=== PATIENT | male | born 1940 | race Hispanic/Latino ===

== ENCOUNTER 2017-10-30 18:51 | Emergency (ER) | payer MEDICARE, MEDICAID | END 2017-10-30 19:43 | disposition home or self-care (01) | LOC: ERS 18:51 | DX: L71.9 Rosacea, unspecified (principal); R09.81 Nasal congestion; I10 Essential (primary) hypertension; E11.9 Type 2 diabetes mellitus without complications | CPT/HCPCS: 99283 ==

== ENCOUNTER 2018-01-23 14:22 | Emergency (ER) | payer MEDICARE, MEDICAID | END 2018-01-23 15:25 | disposition home or self-care (01) | LOC: ERS 14:22 | DX: B37.49 Other urogenital candidiasis (principal); E11.9 Type 2 diabetes mellitus without complications; I10 Essential (primary) hypertension | CPT/HCPCS: 99283 ==

== ENCOUNTER 2018-03-06 21:48 | Emergency (ER) | payer MEDICARE, MEDICAID | END 2018-03-06 23:26 | LOC: ERS 21:48 | DX: Z53.21 Procedure and treatment not carried out due to patient leaving prior to being seen by health care provider (principal) ==

== ENCOUNTER 2018-03-12 01:16 | Emergency (ER) | payer MEDICARE, MEDICAID ==
[2018-03-12] MEDS ORDERED: HYDROcodone/Acetaminophen 10/325 mg Tablet ONE (02:01)
--- NOTE | 2018-03-12 07:53 | RAD ---
PA AND LATERAL VIEWS CHEST: Date: 03/12/18 HISTORY: Injury, right-sided rib pain. FINDINGS/IMPRESSION: Comparison made with exam of 08/06/12. The heart size is normal. The aorta is tortuous. No lobar consolidation or pneumothoraces seen. A sma ll right lateral pleural effusion is present. There is a fracture involving the right 8th rib. POS: [facility]
== END 2018-03-12 02:06 | disposition home or self-care (01) ==
LOC: ERS 01:16
DX: S20.211A Contusion of right front wall of thorax, initial encounter (principal); S00.31XA Abrasion of nose, initial encounter; E11.9 Type 2 diabetes mellitus without complications; Z79.4 Long term (current) use of insulin; W01.0XXA Fall on same level from slipping, tripping and stumbling without subsequent striking against object, initial encounter
CPT/HCPCS: 71046

== ENCOUNTER 2018-04-22 19:02 | Emergency (ER) | payer MEDICARE, MEDICAID | END 2018-04-22 21:54 | disposition left against medical advice (07) | LOC: ERS 19:02 | DX: Z53.21 Procedure and treatment not carried out due to patient leaving prior to being seen by health care provider (principal) ==

== ENCOUNTER 2018-04-28 17:59 | Emergency (ER) | payer MEDICARE, MEDICAID | END 2018-04-28 18:57 | disposition home or self-care (01) | LOC: ERS 17:59 | DX: N48.1 Balanitis (principal); E11.9 Type 2 diabetes mellitus without complications; E78.5 Hyperlipidemia, unspecified; Z79.4 Long term (current) use of insulin; Z79.899 Other long term (current) drug therapy | CPT/HCPCS: 99283 ==

== ENCOUNTER 2018-05-27 14:42 | Emergency (ER) | payer MEDICARE, MEDICAID | END 2018-05-27 17:24 | disposition left against medical advice (07) | LOC: ERS 14:42 | DX: Z53.21 Procedure and treatment not carried out due to patient leaving prior to being seen by health care provider (principal) ==

== ENCOUNTER 2018-06-08 18:33 | Emergency (ER) | payer MEDICARE, MEDICAID ==
[2018-06-08 19:23] LABS: Bilirubin Negative (Negative); Blood, Urine Negative (Negative); Clarity CLEAR (Clear); Glucose, Urine (Dipstick) >=1000 mg/dL (Negative); Leukocyte Small (Negative); Nitrite Negative (Negative); Protein, Urine (Dipstick) Negative (Neg-Trace); Specific Gravity, Urine 1.031 (1.002-1.036)
[2018-06-08 19:27] LABS: Bacteria/HPF None Seen HPF (None Seen); Hyaline Casts/LPF 0-3 HYALINE CAST LPF (0-3 Hyaline); Squamous Epithelial 0-3 HPF (0-3); WBC/HPF 21-50 HPF (0-3)
[2018-06-08 19:30] LABS: Yeast-AUWi Flag 62.5 (0-25.0)
[2018-06-08 19:41] LABS: RBC/HPF 0-3 HPF (0-3); Yeast-All Forms Rare HPF (None Seen)
[2018-06-08] MEDS ORDERED: cefTRIAXone\\ROCEPHIN 250 MG VIAL ONE (21:00)
[2018-06-08] MEDS ORDERED: Lidocaine 1% PF 5 ML VIAL ONE (21:02)
[2018-06-08] MEDS ORDERED: Azithromycin 250 MG TAB ONE (21:05)
== END 2018-06-08 21:15 | disposition home or self-care (01) ==
LOC: ERS 18:33
DX: N48.1 Balanitis (principal); N47.1 Phimosis; E11.9 Type 2 diabetes mellitus without complications; E78.5 Hyperlipidemia, unspecified
CPT/HCPCS: 81003; 81015; 87070; 87086; 87186; 87205; 96372; J0696; J2001

== ENCOUNTER 2018-07-12 16:21 | Emergency (ER) | payer MEDICARE, MEDICAID ==
[2018-07-12 17:25] LABS: Bilirubin Negative (Negative); Blood, Urine Negative (Negative); Clarity CLEAR (Clear); Glucose, Urine (Dipstick) >=1000 mg/dL (Negative); Leukocyte Negative (Negative); Nitrite Negative (Negative); Protein, Urine (Dipstick) Negative (Neg-Trace); Specific Gravity, Urine 1.034 (1.002-1.036); Urobilinogen 0.2 mg/dL (0.2-1.0); pH, Urine 5.5 (5.0-9.0)
== END 2018-07-12 18:02 | disposition left against medical advice (07) ==
LOC: ERS 16:21
DX: Z53.21 Procedure and treatment not carried out due to patient leaving prior to being seen by health care provider (principal)
CPT/HCPCS: 81003

== ENCOUNTER 2018-08-05 16:45 | Outpatient (CLI) | payer MEDICARE, MEDICAID ==
--- NOTE | 2018-08-05 18:59 | RAD ---
KUB: 08/05/18 HISTORY: Renal calculus. COMPARISON: CT of the abdomen was performed 09/19/15. Most recent exam available for comparison. Bowel gas pattern is nonobstructive. There is some faint calcifications that are potentially over the lower pole of th e right kidney and some similar questionable densities over the lower pole of the left kidney. I do n ot see any definite ureteral calculi. There are calcifications of the pelvis which are felt to most l ikely represent phleboliths. Vascular calcifications are seen. Arthritic changes of the spine are not ed. Postop cholecystectomy changes are present. IMPRESSION: Questionable bilateral punctate lower pole renal calculi. POS: [facility]
== END 2018-08-05 16:46 | disposition home or self-care (01) ==
LOC: RAD 16:45
PROVIDERS: ATTEND Urology
DX: N20.0 Calculus of kidney (principal)
CPT/HCPCS: 74018

== ENCOUNTER 2018-10-09 08:56 | Emergency (ER) | payer MEDICAID, MEDICARE ==
[2018-10-09 09:28] LABS: Bilirubin Negative (Negative); Blood, Urine Trace (Negative); Clarity CLOUDY (Clear); Glucose, Urine (Dipstick) 500 mg/dL (Negative); Leukocyte Large (Negative); Nitrite Negative (Negative); Protein, Urine (Dipstick) Negative (Neg-Trace); Specific Gravity, Urine 1.015 (1.002-1.036); Urobilinogen 0.2 mg/dL (0.2-1.0)
[2018-10-09 09:31] LABS: Bacteria/HPF Rare-Few HPF (None Seen); Pathc Cast-AUWi Flag 0.72 (0-2.49); Squamous Epithelial 0-3 HPF (0-3)
[2018-10-09 09:33] LABS: Yeast-AUWi Flag 284.2 (0-25.0)
[2018-10-09 09:33] LABS: #Basophils 0.1 thou/uL (0.0-0.2); #Eosinphils 0.2 thou/uL (0.0-0.7); #Monocytes 0.5 thou/uL (0.11-0.59); #Neutrophils 3.1 thou/uL (1.40-6.50); %Basophils 1.3 % (0.0-1.0); %Eosinophils 4.2 % (0.0-10.0); %Lymphocytes 20.9 % (21.0-51.0); %Monocytes 10.3 % (0.0-10.0); %Neutrophils 63.4 % (42.0-75.0); Hemoglobin 14.6 g/dL (14.0-18.0); Mean Corpuscular HGB CONC 33.9 g/dL (32.0-36.0); Mean Corpuscular Hemoglobin 30.1 pg (27.0-31.0); Mean Corpuscular Volume 88.8 fL (78.0-98.0); Mean Platelet Volume 7.9 fL (7.4-10.4); Platelet Count 201 thou/uL (130-400); RBC Distribution Width 12.6 % (11.5-14.5); Red Blood Cell (RBC) Count 4.87 mill/uL (4.70-6.10); White Blood Cell (WBC) Count 4.8 thou/uL (4.8-10.8)
[2018-10-09 09:40] LABS: Hyaline Casts/LPF NONE SEEN LPF (0-3 Hyaline); RBC/HPF 0-3 HPF (0-3); Yeast-All Forms 1+ HPF (None Seen)
[2018-10-09 09:52] LABS: ALT (SGPT) 9 U/L (8-55); AST (SGOT) 13 U/L (5-34); Albumin 3.8 g/dL (3.4-4.8); Alkaline Phosphatase 92 U/L (40-150); Anion Gap 10 mmol/L (10-20); BUN (Urea Nitrogen) 12 mg/dL (8.4-25.7); Bilirubin, Total 1.1 mg/dL (0.2-1.2); Calc. Creatinine Clearance 0 mL/min (70-130); Carbon Dioxide 30 mmol/L (23-31); Chloride 103 mmol/L (98-107); Estimated GFR-MDRD Greater than 90; Globulin 2.7 g/dL (2.4-3.5); Glucose 259 mg/dL (83-110); Potassium 3.5 mmol/L (3.5-5.1); Protein, Total 6.5 g/dL (5.8-8.1); Sodium 139 mmol/L (136-145)
== END 2018-10-09 10:07 | disposition home or self-care (01) ==
LOC: ERS 08:56
DX: E11.65 Type 2 diabetes mellitus with hyperglycemia (principal); N47.1 Phimosis; N48.1 Balanitis; I10 Essential (primary) hypertension; N39.0 Urinary tract infection, site not specified; E78.5 Hyperlipidemia, unspecified
CPT/HCPCS: 36415; 36416; 80053; 81003; 81015; 85025; 87086; 99283

== ENCOUNTER 2018-11-18 15:53 | Emergency (ER) | payer MEDICARE | END 2018-11-18 16:39 | disposition home or self-care (01) | LOC: ERS 15:53 | DX: S40.862A Insect bite (nonvenomous) of left upper arm, initial encounter (principal); S40.861A Insect bite (nonvenomous) of right upper arm, initial encounter; I10 Essential (primary) hypertension; E11.9 Type 2 diabetes mellitus without complications; E78.5 Hyperlipidemia, unspecified; F32.9 Major depressive disorder, single episode, unspecified; W57.XXXA Bitten or stung by nonvenomous insect and other nonvenomous arthropods, initial encounter | CPT/HCPCS: 99282 ==

== ENCOUNTER 2018-12-13 19:13 | Emergency (ER) | payer MEDICARE, MEDICAID | END 2018-12-13 20:29 | disposition home or self-care (01) | LOC: ERS 19:13 | DX: B86 Scabies (principal); I10 Essential (primary) hypertension; E11.9 Type 2 diabetes mellitus without complications; E78.5 Hyperlipidemia, unspecified; F32.9 Major depressive disorder, single episode, unspecified | CPT/HCPCS: 99282 ==

== ENCOUNTER 2019-01-04 08:39 | Emergency (ER) | payer MEDICARE, MEDICAID ==
[2019-01-04] MEDS ORDERED: Lidocaine 1% (PF) 30 ML VIAL ONE (09:25)
[2019-01-04 10:24] LABS: #Eosinphils 0.1 thou/uL (0.0-0.7); #Lymphocytes 0.8 thou/uL (1.20-3.40); #Monocytes 0.6 thou/uL (0.11-0.59); #Neutrophils 5.2 thou/uL (1.40-6.50); %Basophils 0.4 % (0.0-1.0); %Eosinophils 1.6 % (0.0-10.0); %Lymphocytes 11.7 % (21.0-51.0); %Neutrophils 77.2 % (42.0-75.0); Hemoglobin 13.4 g/dL (14.0-18.0); Mean Corpuscular Hemoglobin 27.2 pg (27.0-31.0); Mean Corpuscular Volume 87.8 fL (78.0-98.0); Mean Platelet Volume 7.5 fL (7.4-10.4); Platelet Count 233 thou/uL (130-400); RBC Distribution Width 12.1 % (11.5-14.5); Red Blood Cell (RBC) Count 4.94 mill/uL (4.70-6.10); White Blood Cell (WBC) Count 6.8 thou/uL (4.8-10.8)
[2019-01-04 10:37] LABS: ALT (SGPT) 13 U/L (8-55); AST (SGOT) 11 U/L (5-34); Albumin 3.6 g/dL (3.4-4.8); Alkaline Phosphatase 96 U/L (40-150); Anion Gap 11 mmol/L (10-20); BUN (Urea Nitrogen) 14 mg/dL (8.4-25.7); Bilirubin, Total 0.7 mg/dL (0.2-1.2); Calc. Creatinine Clearance 0 mL/min (70-130); Carbon Dioxide 28 mmol/L (23-31); Chloride 100 mmol/L (98-107); Estimated GFR-MDRD Greater than 90; Globulin 2.5 g/dL (2.4-3.5); Glucose 365 mg/dL (83-110); Potassium 3.8 mmol/L (3.5-5.1); Protein, Total 6.1 g/dL (5.8-8.1); Sodium 135 mmol/L (136-145)
[2019-01-04] MEDS ORDERED: HYDROcodone/Acetaminophen 10/325 mg Tablet ONE (10:37)
== END 2019-01-04 11:15 | disposition home or self-care (01) ==
LOC: ERS 08:39
DX: L02.811 Cutaneous abscess of head [any part, except face] (principal); E11.65 Type 2 diabetes mellitus with hyperglycemia; I10 Essential (primary) hypertension; E78.5 Hyperlipidemia, unspecified; F32.9 Major depressive disorder, single episode, unspecified; Z79.899 Other long term (current) drug therapy
CPT/HCPCS: 10060; 36415; 36416; 80053; 85025; J2001

== ENCOUNTER 2019-01-09 13:20 | Emergency (ER) | payer MEDICARE, MEDICAID ==
[2019-01-09] MEDS ORDERED: HYDROcodone/Acetaminophen 5/325 mg Tablet ONE (14:37)
== END 2019-01-09 14:45 | disposition home or self-care (01) ==
LOC: ERS 13:20
DX: L02.811 Cutaneous abscess of head [any part, except face] (principal)
CPT/HCPCS: 10060

== ENCOUNTER 2019-01-10 20:26 | Emergency (ER) | payer MEDICARE, MEDICAID ==
[2019-01-10] MEDS ORDERED: Acetaminophen 500 MG TAB ONE (21:41)
== END 2019-01-10 21:52 | disposition home or self-care (01) ==
LOC: ERS 20:26
DX: N49.2 Inflammatory disorders of scrotum (principal); E11.9 Type 2 diabetes mellitus without complications; Z79.899 Other long term (current) drug therapy
CPT/HCPCS: 99283

== ENCOUNTER 2019-01-13 10:10 | Inpatient (IN) | payer MEDICARE, MEDICAID ==
[2019-01-13 12:10] LABS: #Basophils 0.1 thou/uL (0.0-0.2); #Eosinphils 0.1 thou/uL (0.0-0.7); #Lymphocytes 1.1 thou/uL (1.20-3.40); #Monocytes 0.7 thou/uL (0.11-0.59); #Neutrophils 5.7 thou/uL (1.40-6.50); %Basophils 0.8 % (0.0-1.0); %Eosinophils 1.2 % (0.0-10.0); %Lymphocytes 14.3 % (21.0-51.0); %Monocytes 8.9 % (0.0-10.0); %Neutrophils 74.7 % (42.0-75.0); Hemoglobin 14.4 g/dL (14.0-18.0); Mean Corpuscular HGB CONC 32.2 g/dL (32.0-36.0); Mean Corpuscular Hemoglobin 28.9 pg (27.0-31.0); Mean Platelet Volume 7.1 fL (7.4-10.4); Platelet Count 267 thou/uL (130-400); RBC Distribution Width 12.2 % (11.5-14.5); Red Blood Cell (RBC) Count 4.99 mill/uL (4.70-6.10); White Blood Cell (WBC) Count 7.7 thou/uL (4.8-10.8)
[2019-01-13] MEDS ORDERED: Lidocaine 4% Cream 5 GM TUBE w/ Tegaderm ONE (12:25)
[2019-01-13 12:35] LABS: ALT (SGPT) 12 U/L (8-55); AST (SGOT) 15 U/L (5-34); Albumin 4.2 g/dL (3.4-4.8); Alkaline Phosphatase 107 U/L (40-150); Anion Gap 13 mmol/L (10-20); BUN (Urea Nitrogen) 8 mg/dL (8.4-25.7); Bilirubin, Total 0.7 mg/dL (0.2-1.2); Calc. Creatinine Clearance 0 mL/min (70-130); Calcium 9.6 mg/dL (7.8-10.44); Carbon Dioxide 31 mmol/L (23-31); Chloride 98 mmol/L (98-107); Estimated GFR-MDRD Greater than 90; Globulin 2.9 g/dL (2.4-3.5); Glucose 233 mg/dL (83-110); Potassium 3.8 mmol/L (3.5-5.1); Protein, Total 7.1 g/dL (5.8-8.1); Sodium 138 mmol/L (136-145)
[2019-01-13] MEDS ORDERED: Lidocaine 1% w/Epinephrine 1:100K 20 ML VIAL ONE (13:30)
[2019-01-13] MEDS ORDERED: Morphine 4 MG/ML VIAL ONE (13:54)
[2019-01-13] MEDS ORDERED: Piperacillin/Tazobactam 4.5 GM VIAL ONE (13:55)
[2019-01-13] MEDS ORDERED: Sodium Chloride 0.9% 100 ML ONE (13:55)
[2019-01-13] MEDS ORDERED: Ondansetron PF 4 MG/2 ML Vial ONE (13:55)
[2019-01-13] MEDS ORDERED: Ondansetron ODT 4 MG TAB PO PRN (14:37)
[2019-01-13] MEDS ORDERED: Dextrose 5% in Water 1,000 ML IV PRN (14:37)
[2019-01-13] MEDS ORDERED: HumaLOG 300 UNITS/3 ML VIAL SC PRN (14:37)
[2019-01-13] MEDS ORDERED: Dextrose 50% Abboject 50 ML SYRINGE SLOW IVP PRN (14:37)
[2019-01-13] MEDS ORDERED: Acetaminophen 325 MG TAB PO PRN (14:37)
[2019-01-13] MEDS ORDERED: Ondansetron PF 4 MG/2 ML Vial IVP PRN (14:37)
--- NOTE | 2019-01-13 14:37 | PDOC.FPRHP ---
- History of Present Illness Chief Complaint: Head abscess, cellulitis History of Present Illness: This is a 78 yo male with a pmh of HTN, DM2, and staph colonization who presents to the ED for the third time for a cc of abscess on the back of his head. He states it started as a small bump but has grown and become painful. The ER PA reports she has drained this abscess twice now and he has had 3 days of bactrim and keflex but is not improving. Pt denies fever or chills. He state he has rats and bugs at home which he contributes to his head and a scratch on his arm. He states nothing makes it better and palpation makes it worse. 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 denies: vomiting, diarrhea, constipation Genitourinary: denies: incontinence, dysuria Skin: reports: other (See HPI) Musculoskeletal: denies: pain, tenderness, stiffness Neurological: denies: numbness, syncope Psychological: denies: anxiety, depression - Vital signs BP: 138/81 HR: 86 RR: 15 Tmax: 97.7 Pox: 98% on ra Wt: 77 kg - Physical Exam Constitutional: NAD, awake, alert and oriented, well developed HEENT: grossly normal vision, grossly normal hearing, MMM, other (golf ball sized abscess on posterior head with mild erythematous spread) Heart: RRR, normal S1/S2 Lungs: CTAB, no respiratory distress Abdomen: soft, non-tender, bowel sounds present Musculoskeletal: ROM grossly normal Neurological: no focal deficit Skin: no rash/lesions (Abscess on back of head) Heme/Lymphatic: no unusual bruising or bleeding Psychiatric: normal mood and affect FMR H&P: Results - Labs Result Diagrams: 01/14/19 05:05 01/13/19 12:01 Lab results: WBC 7.7 thou/uL (4.8-10.8) 01/13/19 12:01 Hgb 14.4 g/dL (14.0-18.0) 01/13/19 12:01 Hct 44.9 % (42.0-52.0) 01/13/19 12:01 MCV 90.0 fL (78.0-98.0) 01/13/19 12:01 Plt Count 267 thou/uL (130-400) 01/13/19 12:01 Neutrophils % 74.7 % (42.0-75.0) 01/13/19 12:01 ESR Westergren 23 mm/hr (Less than 20) 01/13/19 12:01 Sodium 138 mmol/L (136-145) 01/13/19 12:01 Potassium 3.8 mmol/L (3.5-5.1) 01/13/19 12:01 Chloride 98 mmol/L (98-107) 01/13/19 12:01 Carbon Dioxide 31 mmol/L (23-31) 01/13/19 12:01 BUN 8 mg/dL (8.4-25.7) L 01/13/19 12:01 Creatinine 0.80 mg/dL (0.7-1.3) 01/13/19 12:01 Glucose 233 mg/dL (83-110) H 01/13/19 12:01 Lactic Acid 1.4 mmol/L (0.5-2.2) 01/13/19 13:27 Calcium 9.6 mg/dL (7.8-10.44) 01/13/19 12:01 Total Bilirubin 0.7 mg/dL (0.2-1.2) 01/13/19 12:01 AST 15 U/L (5-34) 01/13/19 12:01 ALT 12 U/L (8-55) 01/13/19 12:01 Alkaline Phosphatase 107 U/L (40-150) 01/13/19 12:01 C-Reactive Protein 1.00 mg/dL (= or < 0.5) H 01/13/19 12:01 Serum Total Protein 7.1 g/dL (5.8-8.1) 01/13/19 12:01 Albumin 4.2 g/dL (3.4-4.8) 01/13/19 12:01 FMR H&P: A/P - Problem List (1) Cellulitis and abscess of head Status: Acute Code(s): L03.811 - CELLULITIS OF HEAD [ANY PART, EXCEPT FACE]; L02.811 - CUTANEOUS ABSCESS OF HEAD [ANY PART, EXCEPT FACE] (2) HTN (hypertension) Status: Chronic Code(s): I10 - ESSENTIAL (PRIMARY) HYPERTENSION (3) DM2 (diabetes mellitus, type 2) Status: Chronic - Plan This is a 78 yo male with a pmh of HTN, DM2 Abscess on back of head -Admit to obs -I&D with packing performed at bedside with 5cc of exudate expressed -Vanc and clinda started -Tylenol and naproxen for pain -Reevaluate in AM -Nursing to bandage changes DM -Appears uncontrolled, pending A1c -SSI, ACHS glucose checks -Continue home meds HTN -Reports no longer taking meds. May consider low dose lisinopril for kidneys Code: Full Prophylaxis: SCDs Family: at bedside Diet: diabetic Disposition: DC in 1-2 days PCP: TOM Smith FMR H&P: Upper Level - Pertinent history 78 y/o M with DM and hx/o abscess presents for abscess and pain to ED. Has been on Keflex and Bactrin for ~1w and had I&D several times in ED within the past week, but not resolved. In ED, larger incision was made and packing placed. Purulent material drained from area. - Pertinent findings 5x5 cm abscess noted on R occiput. - Plan Date/Time: 01/13/19 1434 IVivek, have evaluated this patient and agree with findings/plan as outlined by global marketing intern resident. Pertinent changes/additions are listed here. # Recurrent Abcess- Failed outpatient treatment and recurrence. Will place on IV Van along with Po Clindamycin overnight after I&D performed in ED. Pain control. # DM2- Continue home medication regimen DISPO: anticipate discharge in 1 day Addendum - Attending - Attending Attestation Date/Time: 01/13/191940 I personally evaluated the patient and discussed the management with Dr. Chilel and Dr. Contreras I agree with the History, Examination, Assessment and Plan documented above with any addition or exceptions noted below. 78 yo male with failed outpatient treatment for abscess. Now s/p I&D in ER. Continue empiric antibx. Trend labs. No s/sx of systemic involvement at present. Cultures pending. Switch to oral antibx based on culture results. Monica
[2019-01-13 15:51] VITALS: BMI 25.6
[2019-01-13] MEDS: Clindamycin 150 MG CAP PO SCH ×2 (16:52→21:15)
[2019-01-13] MEDS: Acetaminophen 500 MG TAB PO SCH (17:56)
[2019-01-13] MEDS: HumaLOG 300 UNITS/3 ML VIAL SC PRN (17:57)
[2019-01-13] MEDS: Glimepiride 4 MG TAB PO SCH (21:15)
[2019-01-13] MEDS: Naproxen 500 MG TAB PO SCH (21:15)
[2019-01-14] MEDS: Acetaminophen 500 MG TAB PO SCH ×4 (00:24→18:00)
[2019-01-14] MEDS: Vancomycin HCl 1 GM in Premix Bag 1 BAG IVPB SCH ×2 (00:25→13:31)
[2019-01-14] MEDS ORDERED: Vancomycin HCl 1 GM in Sodium Chloride 0.9% 250 ML 250 ML IVPB SCH (01:00)
[2019-01-14 05:43] LABS: #Basophils 0.1 thou/uL (0.0-0.2); #Eosinphils 0.2 thou/uL (0.0-0.7); #Lymphocytes 1.2 thou/uL (1.20-3.40); #Monocytes 0.7 thou/uL (0.11-0.59); #Neutrophils 3.9 thou/uL (1.40-6.50); %Basophils 1.2 % (0.0-1.0); %Eosinophils 3.2 % (0.0-10.0); %Lymphocytes 19.1 % (21.0-51.0); %Monocytes 11.6 % (0.0-10.0); %Neutrophils 64.8 % (42.0-75.0); Hemoglobin 12.9 g/dL (14.0-18.0); Mean Corpuscular HGB CONC 32.8 g/dL (32.0-36.0); Mean Corpuscular Hemoglobin 29.5 pg (27.0-31.0); Mean Corpuscular Volume 90.1 fL (78.0-98.0); Mean Platelet Volume 7.3 fL (7.4-10.4); Platelet Count 228 thou/uL (130-400); RBC Distribution Width 12.2 % (11.5-14.5); Red Blood Cell (RBC) Count 4.36 mill/uL (4.70-6.10)
[2019-01-14 05:47] LABS: Hemoglobin A1c 11.6 % (4.0-6.0)
--- NOTE | 2019-01-14 06:03 | PDOC.FM ---
- Subjective Subjective: Pt state she did well overnight. Nursing denies any issues. This morning he states his pain is improved. He denies fever or chills. - Objective MAR Reviewed: Yes Vital Signs & Weight: Vital Signs (12 hours) Temp Pulse Resp BP Pulse Ox 01/14/19 03:56 98 F 69 16 137/77 97 01/13/19 23:21 97.2 F L 73 12 151/79 H 96 01/13/19 19:02 98.4 F 82 12 166/81 H 97 Weight Weight 76.385 kg I&O: 01/12/19 01/13/19 01/14/19 06:59 06:59 06:59 Intake Total 600 Balance 600 Result Diagrams: 01/14/19 05:05 01/13/19 12:01 Phys Exam - Physical Examination Constitutional: NAD HEENT: moist MMs Neck: no JVD, full ROM Respiratory: no wheezing, clear to auscultation bilateral Cardiovascular: RRR, no significant murmur Gastrointestinal: soft, non-tender, no distention, positive bowel sounds Musculoskeletal: no edema, pulses present Neurological: moves all 4 limbs Psychiatric: normal affect, A&O x 3 Skin: cap refill <2 seconds Deviation from normal: Abscess and enduration on the back of head is improved -: Changed dressing this AM, small amount of exudate expressed Dx/Plan (1) Cellulitis and abscess of head Code(s): L03.811 - CELLULITIS OF HEAD [ANY PART, EXCEPT FACE]; L02.811 - CUTANEOUS ABSCESS OF HEAD [ANY PART, EXCEPT FACE] Status: Acute (2) HTN (hypertension) Code(s): I10 - ESSENTIAL (PRIMARY) HYPERTENSION Status: Acute (3) DM2 (diabetes mellitus, type 2) Status: Acute - Plan Plan: This is a 78 yo male with a pmh of HTN, DM2 Abscess on back of head -Admit to obs -I&D with packing performed at bedside with 5cc of exudate expressed -Vanc and clinda started -Tylenol and naproxen for pain -Will observe today, appears to be improving in pain and erythema -Nursing to bandage changes DM -Appears uncontrolled, A1c 11.6 -SSI, ACHS glucose checks -Continue home meds HTN -Reports no longer taking meds. May consider low dose lisinopril for kidneys Addendum - Attending - Attending Attestation Date/Time: 01/14/19 5465 I personally evaluated the patient and discussed the management with Dr. Chilel. I agree with the History, Examination, Assessment and Plan documented above with any addition or exceptions noted below. Patient here for cellulitis and abscess refractory to outpatient antibiotic therapy. He continues on Clinda and Vanc. Wound cx pending. Reports improvement in symptoms. Continue abx and await cx results. Will work to get blood sugars better controlled while here.
[2019-01-14] MEDS ORDERED: traMADol HCl 50 MG TAB PO SCH (07:00)
[2019-01-14] MEDS ORDERED: Insulin Glargine 17 UNITS in Pre-Filled Syringe 1 EACH SC SCH (09:00)
[2019-01-14] MEDS ORDERED: Non-Formulary Item 1 EACH (Insulin Glargine,Hum.Rec.Anlog [Lantus Solostar] 15 UNIT) SC SCH (09:00)
[2019-01-14] MEDS ORDERED: Insulin Glargine 15 UNITS in Pre-Filled Syringe 1 EACH SC SCH (09:00)
[2019-01-14] MEDS: Naproxen 500 MG TAB PO SCH ×2 (09:50→21:03)
[2019-01-14] MEDS: Clindamycin 150 MG CAP PO SCH ×4 (09:51→21:03)
[2019-01-14] MEDS: Glimepiride 4 MG TAB PO SCH ×2 (09:51→21:03)
[2019-01-14] MEDS: HumaLOG 300 UNITS/3 ML VIAL SC PRN ×2 (11:53→18:30)
[2019-01-15] MEDS: Acetaminophen 500 MG TAB PO SCH ×2 (00:17→05:37)
[2019-01-15] MEDS: Vancomycin HCl 1 GM in Premix Bag 1 BAG IVPB SCH (00:19)
[2019-01-15 00:48] LABS: Vancomycin, Trough 9.3 ug/mL
--- NOTE | 2019-01-15 05:16 | PDOC.FM ---
- Subjective Subjective: Patient reports the pain from his abscess is improving. He is eating and drinking well, voiding and stooling well, no other complaints. - Objective Vital Signs & Weight: Vital Signs (12 hours) Temp Pulse Resp BP Pulse Ox 01/15/19 03:43 97.4 F L 68 18 132/77 99 01/14/19 23:05 98.4 F 78 20 148/69 H 97 01/14/19 20:12 97.3 F L 73 20 164/84 H 98 Weight Weight 76.385 kg I&O: 01/13/19 01/14/19 01/15/19 06:59 06:59 06:59 Intake Total 1325 780 Balance 1325 780 Result Diagrams: 01/14/19 05:05 01/13/19 12:01 Phys Exam - Physical Examination Constitutional: NAD Respiratory: no wheezing, clear to auscultation bilateral Cardiovascular: RRR, no significant murmur Gastrointestinal: soft, non-tender, no distention, positive bowel sounds Musculoskeletal: no edema, pulses present Neurological: non-focal, moves all 4 limbs Psychiatric: normal affect Skin: normal turgor, cap refill <2 seconds Dx/Plan (1) Cellulitis and abscess of head Code(s): L03.811 - CELLULITIS OF HEAD [ANY PART, EXCEPT FACE]; L02.811 - CUTANEOUS ABSCESS OF HEAD [ANY PART, EXCEPT FACE] Status: Acute (2) DM2 (diabetes mellitus, type 2) Status: Chronic (3) HTN (hypertension) Code(s): I10 - ESSENTIAL (PRIMARY) HYPERTENSION Status: Chronic - Plan Plan: This is a 78 yo male with a pmh of HTN, DM2 Abscess on back of head -I&D with packing performed at bedside with 5cc of exudate expressed -Vanc and clinda, sensitivities resulted showed resistance to multiple meds, plan to de-escalate antibiotics -Tylenol and naproxen for pain -appears to be improving in pain and erythema -Nursing to bandage changes DM2, uncontrolled -Uncontrolled, A1c 11.6 -Increased glargine to 20 u QAM, continue glimepiride home dose -SSI, ACHS glucose checks HTN -Reports no longer taking meds. May consider low dose lisinopril for kidneys Addendum - Attending - Attending Attestation Date/Time: 01/15/19 1577 I personally evaluated the patient and discussed the management with Dr. Velasco. I agree with the History, Examination, Assessment and Plan documented above with any addition or exceptions noted below. Patient here with abscess and cellulitis s/p I/D. He reports improved pain. Sensitivities have resulted. Can likely transition to PO therapy and d/c home with outpatient follow up. DM improved control with Lantus increase but not at goal, will need titration as outpatient.
[2019-01-15] MEDS ORDERED: Insulin Glargine 20 UNITS in Pre-Filled Syringe 1 EACH SC SCH (05:33)
[2019-01-15 08:34] VITALS: BP 165/79; TEMP 98
[2019-01-15] MEDS: Glimepiride 4 MG TAB PO SCH (09:52)
[2019-01-15] MEDS: Naproxen 500 MG TAB PO SCH (09:52)
[2019-01-15] MEDS: Clindamycin 150 MG CAP PO SCH (09:52)
--- NOTE | 2019-01-17 11:48 | DIS ---
DATE OF ADMISSION: 01/14/2019 DATE OF DISCHARGE: 01/15/2019 RESIDENT: Sydnee Velasco MD ADMITTING ATTENDING: Cat Mejia MD DISCHARGE ATTENDING: Arvin Mott MD CONSULTS: None. PROCEDURES: None. PRIMARY DIAGNOSIS: Abscess on the posterior head due to methicillin resistant Staph aureus. SECONDARY DIAGNOSES: 1. Diabetes mellitus type 2, uncontrolled on insulin. 2. Hypertension. DISCHARGE MEDICATIONS: 1. Glimepiride 4 mg tablet, one tab p.o. b.i.d. 2. Doxycycline 100 mg p.o. b.i.d., 20 capsules. 3. Insulin glargine 20 units subcutaneous q.a.m. DISCONTINUED MEDICATIONS: None. HISTORY OF PRESENT ILLNESS/HOSPITAL COURSE: This 78-year-old male with a past medical history of hypertension, diabetes mellitus type 2 and staph colonization , presented to the ED for the third time for chief complaint of abscess on the back of his head. He states that it started as a small bump, but has grown and become painful. The ER physician's assistant professor of radiology reported that she has drained this abscess twice now and he has had 3 days of Bactrim and Keflex, but is not improving. The patient denies fever or chills. He stated he has rats and bugs at home which he contributes to his bump and scratch on his arm. He states nothing makes it better and palpation makes the pain worse. In the ED, he received Zofran, morphine, normal saline 1 L, Zosyn, and vancomycin. The patient was continued on vancomycin and clindamycin. The abscess was I and D'd with packing performed at bedside with 5 mL of exudate expressed. The fluid was sent for culture. It grew out methicillin resistant Staph aureus, sensitive to doxycycline. Blood cultures were drawn, which showed no growth to date. The patient was given Tylenol and naproxen for the pain. The patient improved in his pain and erythema. The patient is discharged with 10 more days of doxycycline and to perform Hibiclens washes daily for 2 weeks. The patient also had type 2 diabetes mellitus, uncontrolled with A1c of 11.6. He is on Glimepiride and glargine at home. His home glargine was increased from 15 units to 20 units qAM. The patient has a history of hypertension but reports he is no longer taking medications. His blood pressure ranged from 120/65 to 165/79. Consider starting lisinopril outpatient. DISPOSITION: Stable. DISCHARGE INSTRUCTIONS: 1. Location: Home. 2. Diet: Consisting carb, heart healthy. 3. Activity: As tolerated. 4. Followup: Follow up with Dr. Dudley at [facility] on Thursday. Job ID: [id number] MTDD
== END 2019-01-15 11:15 | disposition home or self-care (01) | DRG 603 ==
LOC: ERS 10:10 → ERHOLD 13:48 → 2SW 15:44 → OBSVTOIN 01-14 10:46
PROVIDERS: ADMIT Student in an Organized Health Care Education/Training Program; ATTEND Student in an Organized Health Care Education/Training Program
PROC: 0H90XZZ Drainage of Scalp Skin, External Approach (ICD-10-PCS; principal; 2019-01-14)
DX: L02.811 Cutaneous abscess of head [any part, except face] (principal); L03.811 Cellulitis of head [any part, except face]; I10 Essential (primary) hypertension; E11.65 Type 2 diabetes mellitus with hyperglycemia; B95.62 Methicillin resistant Staphylococcus aureus infection as the cause of diseases classified elsewhere; Z79.4 Long term (current) use of insulin
CPT/HCPCS: 36415; 36416; 80053; 80202; 83036; 83605; 85025; 85652; 86140; 87040; 87070; 87077; 87186; 87205; 96365; 96375; J1825; J2001; J2270; J2405; J2543; J3370; J3490

== ENCOUNTER 2019-01-21 07:30 | Emergency (ER) | payer MEDICARE, MEDICAID | END 2019-01-21 08:12 | disposition home or self-care (01) | LOC: ERS 07:30 | DX: S60.562A Insect bite (nonvenomous) of left hand, initial encounter (principal); W57.XXXA Bitten or stung by nonvenomous insect and other nonvenomous arthropods, initial encounter | CPT/HCPCS: 99282 ==

== ENCOUNTER 2019-01-23 13:36 | Emergency (ER) | payer MEDICARE, MEDICAID | END 2019-01-23 14:55 | disposition home or self-care (01) | LOC: ERS 13:36 | DX: N47.1 Phimosis (principal); S40.862A Insect bite (nonvenomous) of left upper arm, initial encounter; S40.861A Insect bite (nonvenomous) of right upper arm, initial encounter; E11.9 Type 2 diabetes mellitus without complications; Z79.84 Long term (current) use of oral hypoglycemic drugs; W57.XXXA Bitten or stung by nonvenomous insect and other nonvenomous arthropods, initial encounter | CPT/HCPCS: 99281 ==

== ENCOUNTER 2019-01-29 22:33 | Emergency (ER) | payer MEDICARE, MEDICAID | END 2019-01-29 23:17 | disposition home or self-care (01) | LOC: ERS 22:33 | DX: H60.92 Unspecified otitis externa, left ear (principal); N48.1 Balanitis; E11.9 Type 2 diabetes mellitus without complications | CPT/HCPCS: 99282 ==

== ENCOUNTER 2019-02-09 12:13 | Emergency (ER) | payer MEDICARE, MEDICAID | END 2019-02-09 12:50 | disposition home or self-care (01) | LOC: ERS 12:13 | DX: H92.02 Otalgia, left ear (principal); E11.9 Type 2 diabetes mellitus without complications; Z79.84 Long term (current) use of oral hypoglycemic drugs | CPT/HCPCS: 99281 ==

== ENCOUNTER 2019-02-18 12:44 | Emergency (ER) | payer MEDICARE, MEDICAID ==
--- NOTE | 2019-02-18 13:39 | RAD ---
EXAM: Chest 2 views: HISTORY: Cough COMPARISON: 03/12/2018 FINDINGS: There is a normal-sized cardiomediastinal silhouette. There is no evidence of consolidation, mass, or pleural effusion. A remote right rib fracture is again seen. IMPRESSION: No evidence of acute cardiopulmonary disease
[2019-02-18 14:04] LABS: #Eosinphils 0.1 thou/uL (0.0-0.7); #Lymphocytes 1.1 thou/uL (1.20-3.40); #Monocytes 0.7 thou/uL (0.11-0.59); #Neutrophils 4.1 thou/uL (1.40-6.50); %Basophils 0.6 % (0.0-1.0); %Eosinophils 1.6 % (0.0-10.0); %Lymphocytes 17.9 % (21.0-51.0); %Monocytes 11.9 % (0.0-10.0); Hemoglobin 14.7 g/dL (14.0-18.0); Mean Corpuscular HGB CONC 32.8 g/dL (32.0-36.0); Mean Corpuscular Hemoglobin 29.6 pg (27.0-31.0); Mean Corpuscular Volume 90.2 fL (78.0-98.0); Mean Platelet Volume 7.7 fL (7.4-10.4); Platelet Count 189 thou/uL (130-400); RBC Distribution Width 12.8 % (11.5-14.5); Red Blood Cell (RBC) Count 4.97 mill/uL (4.70-6.10); White Blood Cell (WBC) Count 6.1 thou/uL (4.8-10.8)
[2019-02-18 14:30] LABS: ALT (SGPT) 13 U/L (8-55); AST (SGOT) 15 U/L (5-34); Alkaline Phosphatase 107 U/L (40-150); Anion Gap 11 mmol/L (10-20); BUN (Urea Nitrogen) 24 mg/dL (8.4-25.7); Bilirubin, Total 0.4 mg/dL (0.2-1.2); Calc. Creatinine Clearance 0 mL/min (70-130); Calcium 9.6 mg/dL (7.8-10.44); Carbon Dioxide 31 mmol/L (23-31); Chloride 97 mmol/L (98-107); Estimated GFR-MDRD 88; Globulin 2.8 g/dL (2.4-3.5); Glucose 385 mg/dL (83-110); Potassium 4.3 mmol/L (3.5-5.1); Protein, Total 6.8 g/dL (5.8-8.1); Sodium 135 mmol/L (136-145)
== END 2019-02-18 16:03 | disposition home or self-care (01) ==
LOC: ERS 12:44
DX: H60.91 Unspecified otitis externa, right ear (principal); E78.5 Hyperlipidemia, unspecified; E11.9 Type 2 diabetes mellitus without complications; I10 Essential (primary) hypertension; Z79.899 Other long term (current) drug therapy
CPT/HCPCS: 36415; 71046; 80053; 85025

== ENCOUNTER 2019-02-27 20:46 | Emergency (ER) | payer MEDICARE, MEDICAID | END 2019-02-27 21:13 | disposition home or self-care (01) | LOC: ERS 20:46 | DX: H60.92 Unspecified otitis externa, left ear (principal); E78.00 Pure hypercholesterolemia, unspecified; I10 Essential (primary) hypertension; E11.9 Type 2 diabetes mellitus without complications | CPT/HCPCS: 99282 ==

== ENCOUNTER 2019-03-11 19:13 | Emergency (ER) | payer MEDICARE, MEDICAID | END 2019-03-11 22:49 | disposition left against medical advice (07) | LOC: ERS 19:13 | DX: Z53.21 Procedure and treatment not carried out due to patient leaving prior to being seen by health care provider (principal) ==

== ENCOUNTER 2019-03-12 21:20 | Emergency (ER) | payer MEDICARE, MEDICAID | END 2019-03-12 21:53 | disposition home or self-care (01) | LOC: ERS 21:20 | DX: N47.6 Balanoposthitis (principal); N47.1 Phimosis | CPT/HCPCS: 99281 ==

== ENCOUNTER 2019-03-20 18:45 | Emergency (ER) | payer MEDICARE, MEDICAID | END 2019-03-20 20:20 | disposition home or self-care (01) | LOC: ERS 18:45 | DX: B37.42 Candidal balanitis (principal); N47.1 Phimosis; L02.811 Cutaneous abscess of head [any part, except face]; H66.42 Suppurative otitis media, unspecified, left ear; E11.9 Type 2 diabetes mellitus without complications; I10 Essential (primary) hypertension; E78.00 Pure hypercholesterolemia, unspecified | CPT/HCPCS: 10060 ==

== ENCOUNTER 2019-05-25 15:49 | Emergency (ER) | payer MEDICARE, MEDICAID | END 2019-05-25 16:30 | disposition home or self-care (01) | LOC: ERS 15:49 | DX: L21.9 Seborrheic dermatitis, unspecified (principal); K45.8 Other specified abdominal hernia without obstruction or gangrene; E11.9 Type 2 diabetes mellitus without complications; I10 Essential (primary) hypertension; E78.00 Pure hypercholesterolemia, unspecified | CPT/HCPCS: 99281 ==

== ENCOUNTER 2019-06-21 17:11 | Emergency (ER) | payer MEDICARE, MEDICAID | END 2019-06-21 18:46 | disposition left against medical advice (07) | LOC: ERS 17:11 | DX: Z53.21 Procedure and treatment not carried out due to patient leaving prior to being seen by health care provider (principal) ==

== ENCOUNTER 2019-07-02 17:36 | Emergency (ER) | payer MEDICARE, MEDICAID ==
[2019-07-02 18:32] LABS: Bacteria/HPF None Seen HPF (None Seen); Bilirubin Negative (Negative); Blood, Urine Negative (Negative); Clarity Clear (Clear); Glucose, Urine (Dipstick) Greater than 1000 mg/dL (Negative); Leukocyte 75 Leu/uL (Negative); Nitrite Negative (Negative); Protein, Urine (Dipstick) Negative (Neg-Trace); RBC/HPF 0-3 HPF (0-3); Squamous Epithelial 0-3 HPF (0-3); Urobilinogen Normal mg/dL (Less than 2)
== END 2019-07-02 18:45 | disposition home or self-care (01) ==
LOC: ERS 17:36
DX: N48.1 Balanitis (principal); E11.9 Type 2 diabetes mellitus without complications
CPT/HCPCS: 81003; 81015; 99283

== ENCOUNTER 2019-08-19 16:48 | Emergency (ER) | payer MEDICARE, MEDICAID | END 2019-08-19 17:34 | disposition home or self-care (01) | LOC: ERS 16:48 | DX: R22.0 Localized swelling, mass and lump, head (principal) | CPT/HCPCS: 99281 ==

== ENCOUNTER 2019-11-21 19:12 | Emergency (ER) | payer MEDICARE, MEDICAID | END 2019-11-21 19:28 | disposition left against medical advice (07) | LOC: ERS 19:12 | DX: Z53.21 Procedure and treatment not carried out due to patient leaving prior to being seen by health care provider (principal) ==

== ENCOUNTER 2019-12-21 10:15 | Inpatient (IN) | payer MEDICARE, MEDICAID ==
--- NOTE | 2019-12-21 11:42 | CT ---
CT CERVICAL SPINE WITH CORONAL AND SAGITTAL REFORMATIONS: Date: 12/21/2019 HISTORY: Trauma, fall, neck pain. FINDINGS/IMPRESSION: Multilevel degenerative changes are present. No acute fracture, subluxation, or facet malalignment id entified. POS: [facility]
[2019-12-21] MEDS ORDERED: Ketorolac Tromethamine 30 MG/ML VIAL ONE (12:06)
[2019-12-21] MEDS ORDERED: Morphine 4 MG/ML VIAL ONE (12:07)
[2019-12-21] MEDS ORDERED: Calcium Chloride 1 GM/10 ML Abboject SYRINGE ONE (12:10)
[2019-12-21] MEDS ORDERED: EPHEDRINE 25 MG/5 ML SYRINGE ONE (12:10)
[2019-12-21] MEDS ORDERED: PHENYLEPHRINE-NS 100 MCG/ML 10 ML SYRINGE ONE ×2 (12:10→18:15)
--- NOTE | 2019-12-21 12:19 | RAD ---
AP PELVIS: Date: 12/21/2019 HISTORY: Trauma, fall. COMPARISON: None. FINDINGS: There is a mid cervical right femoral neck fracture with mild impaction. The left femur appears to be intact. Mild narrowing of pubic symphysis. Mild SI joint degenerative changes. IMPRESSION: Right mid cervical femoral neck fracture with mild foreshortening and impaction. POS: [facility]
--- NOTE | 2019-12-21 12:21 | RAD ---
RIGHT FEMUR: AP and lateral views. Total of 4 images. INDICATION: Trauma. Fall with injury to hip. FINDINGS: There is a fracture through the base of the femoral neck on the right with minimal displacement. The mid and distal femur appear intact and unremarkable. IMPRESSION: Right hip fracture. POS: [facility]
[2019-12-21 12:26] LABS: #Basophils 0.1 thou/uL (0.0-0.2); #Lymphocytes 0.7 thou/uL (1.20-3.40); #Monocytes 0.6 thou/uL (0.11-0.59); #Neutrophils 6.8 thou/uL (1.40-6.50); %Basophils 0.6 % (0.0-1.0); %Eosinophils 0.4 % (0.0-10.0); %Lymphocytes 9.1 % (21.0-51.0); %Monocytes 7.7 % (0.0-10.0); %Neutrophils 82.3 % (42.0-75.0); Hemoglobin 15.8 g/dL (14.0-18.0); Mean Corpuscular HGB CONC 33.5 g/dL (32.0-36.0); Mean Corpuscular Hemoglobin 29.9 pg (27.0-31.0); Mean Corpuscular Volume 89.4 fL (78.0-98.0); Mean Platelet Volume 7.6 fL (7.4-10.4); Platelet Count 185 thou/uL (130-400); RBC Distribution Width 12.5 % (11.5-14.5); Red Blood Cell (RBC) Count 5.27 mill/uL (4.70-6.10); White Blood Cell (WBC) Count 8.2 thou/uL (4.8-10.8)
[2019-12-21 12:32] LABS: Prothrombin Time 13.1 SEC (12.0-14.7)
--- NOTE | 2019-12-21 12:38 | CT ---
BRAIN CT WITHOUT IV CONTRAST: Date; 12/21/2019 HISTORY: Injury from trauma. COMPARISON: 12/05/2014. FINDINGS: There is some minimal atrophy and chronic white matter ischemic changes, stable. No focal mass or mid line shift. No intra or extra-axial hemorrhage. Sinuses and mastoids are clear of acute process. IMPRESSION: No significant acute intracranial process. No mass or bleed. POS: [facility]
[2019-12-21 12:52] LABS: Anion Gap 13 mmol/L (10-20); BUN (Urea Nitrogen) 9 mg/dL (8.4-25.7); Calc. Creatinine Clearance 0 mL/min (70-130); Calcium 9.1 mg/dL (7.8-10.44); Carbon Dioxide 26 mmol/L (23-31); Chloride 102 mmol/L (98-107); Estimated GFR-MDRD Greater than 90; Glucose 217 mg/dL (83-110); Potassium 3.6 mmol/L (3.5-5.1); Sodium 137 mmol/L (136-145)
[2019-12-21] MEDS ORDERED: traMADol HCl 50 MG TAB PO PRN ×2 (13:58)
[2019-12-21] MEDS ORDERED: Morphine 4 MG/ML VIAL SLOW IVP PRN (13:58)
[2019-12-21] MEDS ORDERED: Dextrose 50% Abboject 50 ML SYRINGE SLOW IVP PRN (13:58)
[2019-12-21] MEDS ORDERED: Morphine 2 MG/ML SYRINGE SLOW IVP PRN (13:58)
[2019-12-21] MEDS ORDERED: hydrALAZINE 20 MG/ML VIAL SLOW IVP PRN (13:58)
[2019-12-21] MEDS ORDERED: Ondansetron PF 4 MG/2 ML Vial IVP PRN (13:58)
[2019-12-21] MEDS ORDERED: Ondansetron ODT 4 MG TAB PO PRN (13:58)
[2019-12-21] MEDS ORDERED: Dextrose 5% in Water 1,000 ML IV PRN (13:58)
[2019-12-21] MEDS ORDERED: Insulin Regular 300 UNITS/3 ML VIAL SC PRN (13:58)
--- NOTE | 2019-12-21 14:39 | CON ---
DATE OF CONSULTATION: 12/21/2019 REQUESTING PHYSICIAN: Kyree Negrete DO CONSULTING PHYSICIAN: Cosme Schulte MD BRIEF CLINICAL HISTORY: Miles is a 79-year-old male, who was admitted by the Trauma Team after he fell yesterday afternoon around 12:00 p.m. He denies any loss of consciousness, but he fell at home, struck his head on some concrete steps, but his was able to help him get back inside and he spent the rest of the evening sitting at home hoping that his pain would get better. He woke up this morning, ate breakfast, and he still had discomfort. Therefore, EMS was dispatched. The patient was brought to [facility], where plain radiographs demonstrated an impacted and shortened right femoral neck fracture. He has been admitted by the Trauma Team. We have been consulted for evaluation and definitive orthopedic management for this problem. PAST MEDICAL HISTORY: Significant for diabetes and hyperlipidemia. PAST SURGICAL HISTORY: Lumbar disk spine surgery. MEDICATIONS: 1. Lantus. 2. Glimepiride. ALLERGIES: NO KNOWN DRUG ALLERGIES. HE DENIES ANY CONTACT ALLERGIES. SOCIAL HISTORY: He denies any ethanol, tobacco, or illicit drug abuse. He is . He lives here locally. He is retired. PHYSICAL EXAMINATION: GENERAL: He is a well-nourished, well-developed male, appearing his stated age, in no apparent distress or discomfort. He does admit to discomfort in the right hip with palpation. He has already received 4 mg of morphine IV. HEENT: Head; normocephalic, atraumatic. Pupils are equal, round, reactive to light. Oropharynx is benign. CHEST: Clear to auscultation. HEART: Regular rhythm. ABDOMEN: Soft. EXTREMITIES: No clubbing, cyanosis, or edema. He does have shortening of the right lower extremity relative to the left, but there is not much external rotation as would be expected with a displaced fracture. He is neurovascularly intact in the right lower extremity. He has full digital excursion. Good sensation throughout. IMAGING STUDIES: Two-view right hip demonstrates femoral neck fracture, which is very vertical in nature extending from the subcapital region superiorly down inferiorly towards the calcar. It does not extend to the lesser trochanter. This has been confirmed with radiographs as well as a CT for characterization of the fracture. IMPRESSION: Right hip femoral neck fracture with impaction. PLAN: The risks, benefits, options, alternatives, and rationale for proceeding with right hip hemiarthroplasty has been explained in great detail with the patient. He is ready to proceed. All questions were answered. No guarantee of outcome stated or implied. Please see orders. Job ID: [id number]
[2019-12-21] MEDS: Acetaminophen 325 MG TAB PO SCH ×2 (14:42→20:33)
--- NOTE | 2019-12-21 15:08 | RAD ---
PORTABLE CHEST: Date: 12/21/2019 PROVIDED CLINICAL HISTORY: Preop. FINDINGS: Comparison with 11/04/2011. Cardiac and mediastinal silhouette is within normal limits. Lungs appear clear. No pleural fluid or p neumothorax apparent. Vascular calcification involves the aortic arch. IMPRESSION: No evidence for an acute cardiopulmonary process. POS: [facility]
--- NOTE | 2019-12-21 15:24 | RAD ---
AP PELVIS: Date: 12/21/2019 INDICATION: Preoperative evaluation. FINDINGS: Fracture through the right femoral neck is again noted. Minimal displacement. No interval change appa rent. The bony pelvis appears intact. IMPRESSION: Right femoral neck fracture again noted. POS: [facility]
--- NOTE | 2019-12-21 15:34 | RAD ---
FRONTAL VIEW RIGHT HIP: DATE: 12/21/2019. PROVIDED CLINICAL HISTORY: Preop. FINDINGS: Correlation is made with the femoral radiographs performed earlier same date. Impacted, displaced ri ght femoral neck fracture is redemonstrated. IMPRESSION: As above. POS: [facility]
--- NOTE | 2019-12-21 15:47 | HP ---
REQUESTING PHYSICIAN: Dr. German. ATTENDING SURGEON: Dr. Negrete. CONSULTATIONS: Orthopedics, Dr. Schulte. HISTORY OF PRESENT ILLNESS: The patient is a 79-year-old man, who yesterday was working outside when he lost his balance and fell in the roadway. He was able to summon his to come help him, get inside. Throughout the day and overnight, he was self medicating with [id number] pain medicine. Today, he was unable to get up and ambulate with extricating pain, at which time he called the ambulance. He was brought to the emergency department, where he underwent evaluation and examination and was noted to have the right intertrochanteric femur fracture, at which time, we were asked to evaluate the patient for admission and obtain Orthopedic consultation. The patient denied loss of consciousness, though he did state that he hit his head yesterday. Reports no issues at this time regarding vision, mental status. The patient denied any syncopal episodes before or after his fall. ALLERGIES: NONE. CURRENT MEDICATIONS: 1. Lantus. 2. Glimepiride. PAST MEDICAL HISTORY: Hyperlipidemia, diabetes. PAST SURGICAL HISTORY: Diskectomy, the patient is unsure of which level, just "his back." SOCIAL HISTORY: The patient lives at home with his spouse. He denies drug, tobacco, or alcohol use. REVIEW OF SYSTEMS: A 10-point review of systems is negative as otherwise stated. The patient denies any recent travel or exposure risk. PHYSICAL EXAMINATION: VITAL SIGNS: Blood pressure 155/104, heart rate 88, respirations 18, oxygen saturation is 98% on room air, and temperature is 99. GENERAL: The patient is resting in bed. He appears to be in some discomfort. He reports receiving pain medication at this time. He is alert and oriented x3. Terri Coma Scale is 15. HEENT: Head is normocephalic and atraumatic. Eyes, extraocular motions intact. PERRLA bilaterally. Ears are atraumatic without discharge. Nose is atraumatic without discharge. Oropharynx is clear. NECK: Nontender. Trachea is midline. No JVD. CHEST: Clear to auscultation with good inspiratory and expiratory effort. HEART: Regular rate and rhythm. ABDOMEN: Soft, flat, nontender with active bowel sounds. PELVIS: Stable with tenderness to palpation to the right hip consistent with his fracture. EXTREMITIES: Neurovascularly intact x4. LABORATORY FINDINGS: White blood cell count 8.2, hemoglobin 15.8, hematocrit 47.1, platelets 185. Sodium 137, potassium 3.6, chloride 102, CO2 of 26, BUN 9, creatinine 0.70, glucose 217. PT 13.1, INR 1.0. RADIOGRAPHS: CT of the brain without contrast shows no significant acute intracranial process. CT of the C-spine without contrast shows no acute fracture, subluxation, or facet malalignment. AP pelvis radiograph shows a right mid cervical femoral neck fracture with mild foreshortening and impaction. Views of the right hip again show right femoral neck fracture. Views of the right femur again show femoral neck fracture with mild displacement. AP chest x-ray shows no evidence of acute cardiopulmonary process. ASSESSMENT/PLAN: 1. Status post ground level fall with delayed presentation, day prior. 2. Right femoral neck fracture. 3. Acute pain secondary to above. 4. History of diabetes and hyperlipidemia. PLAN: Plan will be to keep the patient n.p.o. He will be admitted to the surgical floor in preparation for surgery today. The patient was evaluated in the emergency department by Orthopedics. The patient will have pain control pulmonary toilet, gastritis and mechanical VTE prophylaxis. The evaluation, examination, laboratory, and radiographic findings were discussed with Dr. Negrete prior to this dictation. Job ID: [id number]
--- NOTE | 2019-12-21 16:24 | CT ---
CT RIGHT HIP: 12/21/19 PROVIDED CLINICAL HISTORY: Pain status post injury. FINDINGS: There is a displaced fracture of the right femoral neck with about one cortex width anterior displace ment of the distal fragment with respect to the proximal fragment. This is somewhat obliquely oriente d in the AP plane but is essentially subcapital. No additional fracture is evident. The femoral/aceta bular relationship appears maintained. Bruising and/or edema involving the subcutaneous adipose layer in the right peritrochanteric region. Vascular calcifications are seen. IMPRESSION: Mildly displaced right femoral neck fracture. POS: NOEMY
[2019-12-21] MEDS ORDERED: Fentanyl 100 MCG/2 ML VIAL ONE ×2 (16:28→19:36)
[2019-12-21 18:24] VITALS: BMI 24.8
[2019-12-21] MEDS ORDERED: PROPOFOL 20 ML ONE (18:26)
[2019-12-21] MEDS: Sodium Chloride 0.9% 1,000 ML IV SCH (19:28)
--- NOTE | 2019-12-21 19:33 | RAD ---
Right hip one view HISTORY: Hip fracture. FINDINGS: The metallic femoral stem component and cerclage wire of right hip prosthesis visible. Femo ral head component is lucent. No tita-hardware lucency apparent.
[2019-12-21] MEDS: Ibuprofen 600 MG TAB PO SCH (20:33)
[2019-12-21] MEDS: Senokot S 8.6-50 MG TAB PO SCH (20:34)
[2019-12-21] MEDS: Famotidine 20 MG TAB PO SCH (20:34)
--- NOTE | 2019-12-21 21:10 | RAD ---
PELVIC RADIOGRAPH: 12/21/19 PROVIDED CLINICAL HISTORY: Postop. FINDINGS: Comparison is made to the examination performed earlier same date. There are interval changes of right hip arthroplasty partially visualized. Associated postoperative g as. Cutaneous barry are seen lateral to the hip. IMPRESSION: Interval postoperative change. POS: NOEMY
--- NOTE | 2019-12-21 21:11 | RAD ---
TWO VIEWS RIGHT HIP: 12/21/19 PROVIDED CLINICAL HISTORY: Postop. FINDINGS: Comparison to exam earlier same date. Interval postoperative changes of the right hip arthroplasty. Associated soft tissue gas. Cutaneous s taples are seen in the soft tissues lateral to the hip. IMPRESSION: As above. POS: NOEMY
[2019-12-21] MEDS ORDERED: CEFAZOLIN 2 GM in Premix Bag 1 BAG IVPB SCH (22:00)
[2019-12-22] MEDS: CEFAZOLIN 2 GM in Premix Bag 1 BAG IVPB SCH ×3 (00:24→16:16)
[2019-12-22] MEDS: Sodium Chloride 0.9% 1,000 ML IV SCH (00:27)
--- NOTE | 2019-12-22 01:00 | PRG ---
DATE OF SERVICE: 12/22/2019 SUBJECTIVE: Mr. Martin is a 79-year-old male with status post ground level fall, right hip fracture with history of diabetes and hyperlipidemia. The patient underwent ORIF of right hip fracture earlier today. The patient tolerated the procedure well. Postop, the patient doing good. Pain is well controlled. Vital signs have been stable. He developed no fever or shortness of breath. OBJECTIVE: GENERAL: Currently, the patient is lying down in bed, comfortable with no acute respiratory distress. VITAL SIGNS: Stable. LUNGS: Clear bilaterally. HEART: Regular rate and rhythm. ABDOMEN: Soft, nondistended. EXTREMITIES: Neurovascularly intact x4. Postop dressing clean, dry, intact. NEUROLOGIC: No focal neurology deficits. ASSESSMENT: 1. Status post ground level fall. 2. Right hip fracture status post open reduction and internal fixation of right hip fracture, postop day #0. 3. History of diabetes, hyperlipidemia. PLAN: Continue supportive care. Continue pain control. The patient will be working on physical therapy, occupational therapy tomorrow. Anticipate placement in rehabilitation facility. Continue . Continue diabetes treatment with Accu-Chek every 6 hours and sliding scale. Job ID: [id number]
[2019-12-22] MEDS: Acetaminophen 325 MG TAB PO SCH ×4 (02:55→19:57)
[2019-12-22] MEDS: Ibuprofen 600 MG TAB PO SCH ×3 (03:00→19:57)
[2019-12-22] MEDS: Insulin Regular 300 UNITS/3 ML VIAL SC PRN ×3 (05:46→16:17)
[2019-12-22 06:05] LABS: Hemoglobin A1c 10.3 % (4.0-6.0)
[2019-12-22 06:52] LABS: #Lymphocytes 0.8 thou/uL (1.20-3.40); #Monocytes 0.9 thou/uL (0.11-0.59); #Neutrophils 7.2 thou/uL (1.40-6.50); %Basophils 0.5 % (0.0-1.0); %Eosinophils 0.5 % (0.0-10.0); %Lymphocytes 9.2 % (21.0-51.0); %Monocytes 10.4 % (0.0-10.0); %Neutrophils 79.4 % (42.0-75.0); Hemoglobin 12.2 g/dL (14.0-18.0); Mean Corpuscular HGB CONC 32.1 g/dL (32.0-36.0); Mean Corpuscular Hemoglobin 29.4 pg (27.0-31.0); Mean Corpuscular Volume 91.4 fL (78.0-98.0); Mean Platelet Volume 7.8 fL (7.4-10.4); Platelet Count 172 thou/uL (130-400); RBC Distribution Width 12.5 % (11.5-14.5); Red Blood Cell (RBC) Count 4.15 mill/uL (4.70-6.10); White Blood Cell (WBC) Count 9.1 thou/uL (4.8-10.8)
[2019-12-22] MEDS: Polyethylene Glycol 3350 17 GM Packet PO SCH (08:47)
[2019-12-22] MEDS: Famotidine 20 MG TAB PO SCH ×2 (08:48→19:57)
[2019-12-22] MEDS: Senokot S 8.6-50 MG TAB PO SCH ×2 (08:48→19:57)
[2019-12-22] MEDS: Enoxaparin Sodium 40 MG/0.4 ML SYRINGE SC SCH (08:48)
[2019-12-22] MEDS: Insulin Glargine 20 UNITS in Pre-Filled Syringe 1 EACH SC SCH (08:55)
--- NOTE | 2019-12-22 12:07 | PRG ---
DATE OF SERVICE: 12/22/2019 SUBJECTIVE: The patient is hospital day 2, postop day 1, status post ground-level fall, in which he sustained a right femoral neck fracture. He has subsequently undergone open reduction and internal fixation of same, which he tolerated well. He had no issues overnight. His pain is controlled. He is tolerating a diet. The patient is currently waiting to work with Physical and Occupational Therapy. PHYSICAL EXAMINATION: VITAL SIGNS: Temperature 99.3, heart rate 94, blood pressure 121/83, respirations 16, and oxygen saturation 97% on room air. GENERAL: The patient is resting comfortably in bed. He is awake, alert, and oriented. [place] Coma Scale is 15. HEENT: Unremarkable. LUNGS: Respirations are nonlabored. ABDOMEN: Soft and nondistended. EXTREMITIES: Neurovascularly intact x4. LABORATORY FINDINGS: White blood cell count 9.1, hemoglobin 12.2, hematocrit 37.9, and platelets 172. There are no radiographs reviewed this morning. ASSESSMENT/PLAN: 1. Status post ground-level fall. 2. Status post open reduction and internal fixation of right femoral neck fracture, postop day 1. Plan will be to continue supportive care, begin physical and occupational therapy, and work on placement. The patient was evaluated this morning with Dr. Negrete during rounds. Job ID: [id number]
[2019-12-22] MEDS: Cyclobenzaprine 10 MG TAB PO PRN (14:48)
--- NOTE | 2019-12-22 16:42 | OP ---
DATE OF PROCEDURE: 12/21/2019 PREOPERATIVE DIAGNOSIS: Right femoral neck fracture with high [place] angle. POSTOPERATIVE DIAGNOSIS: Right femoral neck fracture with high [place] angle. PROCEDURE PERFORMED: Right hip hemiarthroplasty. ANESTHESIA: General. AUTOMATION CONTROL TECHNICIAN: Iraj Bautista PA-C ESTIMATED BLOOD LOSS: 300 mL. IMPLANTS: The DePuy system was used with a size 5 cemented [place] stem, a 28 x 50 bipolar cup, and a +12 femoral head with the addition of 1.7 mm cable and Simplex cement. COMPLICATIONS: None. DRAINS: None. SPECIMEN: None. OUTCOME: Stable hemiarthroplasty. INDICATIONS FOR PROCEDURE: The patient is a 79-year-old gentleman, status post ground level fall sustaining a right femoral neck fracture with displacement. Preoperatively, his x-ray was found to be somewhat unusual and that it was a very vertical fracture that it stopped at about the level of the lesser trochanter. It was not felt to be a fracture that would be very amenable to internal fixation. As such, we opted to proceed with hemiarthroplasty placement. Informed consent has been obtained. I believe all questions have been answered. DESCRIPTION OF PROCEDURE: The patient was brought to the operating room and a time-out performed followed by induction of general anesthesia. The patient was positioned in the left lateral decubitus position and a sterile prep and drape were performed of the right lower extremity. A curvilinear incision was made centered over the greater trochanter. After skin was sharply incised, dissection was carried down through the subcutaneous fat to the level of the fascia keon and tensor fascia. This structure was then incised in line with the skin incision and then a Charnley retractor placed reflecting the fascia keon anteriorly and posteriorly. The trochanteric bursa was swept off the short external rotators and then an elevator passed under the abductors, gaining access to the piriformis tendon and the superior and inferior gemelli tendons. These were released off the posterior aspect of the proximal femur, tagged and reflected posteriorly, gaining access to the hip capsule. The capsule was opened in a T-fashion with the leaflets of the T tagged for eventual repair. The femoral head was removed with a corkscrew device. Elevators were placed in the wound to further expose the fractured femoral neck. An oscillating saw was then used to make a femoral neck cut. The bulk of the femoral neck cut then was intact except for posteriorly where a small fracture line did continue with a little cortical defect present. Given this defect that did extend down to the level of the lesser trochanter, it was opted to proceed with a prophylactic cabling of the proximal femur. As such, the Synthes cable system was used to pass a cable just inferior to the lesser trochanter around the femur and then tensioned it to provide further stabilization of this proximal femur. The proximal femur was broached with T-handle awls as well as the final broaches up to a size 5, they gave good fit and fill. A trial reduction was then performed and this was found to be relatively stable with a +12 head. He was found to have a very retroverted acetabulum and as such, did not have great stability posteriorly. Once it was felt that this stability was optimized with a +12 head, the trial components were removed and then the final size 5 stem was cemented in place. Once the cement had cured, the final bipolar cup and head were placed on the stem and then the hip was reduced. The capsule was reapproximated with #2 Vicryl followed by reattachment of the short external rotators with #2 Vicryl, #2 Vicryl also used for the fascia keon and tensor fascia followed by 0 Vicryl for Mattie fascia, 2-0 Vicryl subcutaneously and barry for the skin. Xeroform gauze and tape dressing were applied to the thigh and then the patient was transferred to recovery room in stable condition. There were no complications. The patient tolerated the procedure well. Job ID: [id number]
[2019-12-22] MEDS ORDERED: Acetaminophen/Codeine 30-300mg Tablet PO PRN (18:51)
--- NOTE | 2019-12-23 01:48 | PRG ---
DATE OF SERVICE: 12/22/2019 SUBJECTIVE: Mr. Martin remains in surgical floor. The patient was seen on round this evening. The patient is alert and awake, reports pain is well controlled. He is able to work with Physical Therapy and Occupational Therapy. He is tolerating his regular diet. His vital signs have been stable. He developed no fever or shortness of breath. He reports has not had bowel for three days. His urine is adequate. OBJECTIVE: GENERAL: Currently, the patient is lying in bed, comfortable, with no acute respiratory distress. VITAL SIGNS: Stable. LUNGS: Clear bilaterally. HEART: Regular rate and rhythm. ABDOMEN: Soft, nondistended. EXTREMITIES: Neurovascularly intact x4. Postop dressing clean, dry, and intact. ASSESSMENT: 1. Status post ground level fall. 2. Right femoral neck fracture status post open reduction and internal fixation of right femoral neck fracture. 3. Diabetes type 2, uncontrolled. PLAN: 1. Continue supportive care. Continue pain control. Continue DVT prophylaxis. Continue working with Physical Therapy and Occupational Therapy. The patient will have lactulose tomorrow for constipation treatment. 2. We will change hyperglycemia treatment from mild sliding scale to moderate sliding scale. Job ID: [id number]
[2019-12-23] MEDS: Acetaminophen 325 MG TAB PO SCH ×4 (03:12→20:38)
[2019-12-23] MEDS: Ibuprofen 600 MG TAB PO SCH ×3 (04:37→20:37)
[2019-12-23 06:13] LABS: #Eosinphils 0.2 thou/uL (0.0-0.7); #Neutrophils 4.9 thou/uL (1.40-6.50); %Basophils 0.7 % (0.0-1.0); %Eosinophils 2.6 % (0.0-10.0); %Lymphocytes 14.2 % (21.0-51.0); %Monocytes 13.6 % (0.0-10.0); %Neutrophils 68.9 % (42.0-75.0); Hemoglobin 10.5 g/dL (14.0-18.0); Mean Corpuscular HGB CONC 33.7 g/dL (32.0-36.0); Mean Corpuscular Hemoglobin 30.3 pg (27.0-31.0); Mean Corpuscular Volume 89.9 fL (78.0-98.0); Platelet Count 132 thou/uL (130-400); RBC Distribution Width 12.3 % (11.5-14.5); Red Blood Cell (RBC) Count 3.46 mill/uL (4.70-6.10); White Blood Cell (WBC) Count 7.1 thou/uL (4.8-10.8)
[2019-12-23] MEDS: Acetaminophen/Codeine 30-300mg Tablet PO PRN ×2 (08:45→20:38)
[2019-12-23] MEDS: Enoxaparin Sodium 40 MG/0.4 ML SYRINGE SC SCH (08:46)
[2019-12-23] MEDS: Insulin Glargine 20 UNITS in Pre-Filled Syringe 1 EACH SC SCH (08:47)
[2019-12-23] MEDS: Polyethylene Glycol 3350 17 GM Packet PO SCH (08:47)
[2019-12-23] MEDS: Senokot S 8.6-50 MG TAB PO SCH ×2 (08:47→20:38)
[2019-12-23] MEDS: Famotidine 20 MG TAB PO SCH ×2 (08:47→20:39)
[2019-12-23] MEDS: HumaLOG 300 UNITS/3 ML VIAL SC PRN ×2 (13:07→16:39)
[2019-12-23] MEDS ORDERED: Bisacodyl 10 MG SUPP PR PRN (14:08)
--- NOTE | 2019-12-23 14:31 | PRG ---
DATE OF SERVICE: SUBJECTIVE: The patient is hospital day #3, postop day #2, status post ground-level fall, from which he sustained a right femoral neck fracture. He underwent open reduction and internal fixation of the same. He has done well. He is tolerating a diet. His pain is controlled, but he is complaining of constipation. PHYSICAL EXAMINATION: VITAL SIGNS: Temperature is 98.4, heart rate 85, blood pressure 118/82, respirations 16, oxygen saturation 95% on room air. GENERAL: The patient is resting comfortably in bed. He is awake, alert, and conversant. He is now complaining about difficulty urinating. HEENT: Unremarkable. LUNGS: Clear to auscultation bilaterally. ABDOMEN: Soft, nondistended with active bowel sounds. EXTREMITIES: Neurovascularly intact x4. : Reveals phimosis. Marroquin catheter has been placed. LABORATORY FINDINGS: WBC 7.1, hemoglobin 10.5, hematocrit 31.1, platelets 132. DIAGNOSTIC STUDIES: There were no radiographs to review this morning. ASSESSMENT: 1. Status post ground-level fall. 2. Postoperative day #2 status post right hip hemiarthroplasty. 3. Phimosis, required Marroquin catheter placement. 4. History of diabetes and hyperlipidemia. 5. Constipation. PLAN: Plan will be to continue supportive care, urology consultation, and make adjustments to his bowel regimen. The patient was evaluated and examined this morning with Dr. Negrete during rounds. Dr. Null of the urology service was contacted this morning also. Job ID: [id number]
[2019-12-23] MEDS: Cyclobenzaprine 10 MG TAB PO PRN (20:37)
--- NOTE | 2019-12-23 20:38 | CON ---
DATE OF CONSULTATION: 12/23/2019 REASON FOR CONSULTATION: Phimosis. HISTORY OF PRESENT ILLNESS: Mr. Martin is a 79-year-old gentleman with phimosis to the point of a rather severe voiding difficulties. He has actually been seen by Dr. Haider for surgical consultation. He has been scheduled for circumcision because of the voiding difficulty. He has failed to improve significantly with topical therapies. He was originally scheduled for circumcision in 2018, but then canceled. Apparently, he was again scheduled in 2019, but failed to comply to the n.p.o. status. He continues to have difficulty with his foreskin. Most recently, he was in the emergency room complaining of difficulty on 12/04/2019. He is now admitted to [facility]. He is status post a fall on 12/21/2019, that resulted in hip fracture. He underwent right hip hemiarthroplasty on 12/21/2019. They noted difficulty placing his catheter because of the phimosis. PAST MEDICAL HISTORY: 1. Hyperlipidemia. 2. Diabetes mellitus. PAST SURGICAL HISTORY: 1. Diskectomy. 2. Left hemiarthroplasty. SOCIAL HISTORY: He is a nonsmoker. Denies excessive alcohol use. Lives at home with his . REVIEW OF SYSTEMS: RESPIRATORY: Denies any shortness of breath. CARDIOVASCULAR: Denies chest pain or palpitations. GASTROINTESTINAL: Denies chronic constipation or diarrhea. GENITOURINARY: Please see history of present illness. EXTREMITIES: Status post left hip fracture and repair. PHYSICAL EXAMINATION: GENERAL: He is awake and alert. He is in no distress. Speech is somewhat difficult to understand. VITAL SIGNS: Temperature 97.6, blood pressure 138/82, pulse 82, respiratory rate 20. HEENT: Normocephalic and atraumatic. NECK: Supple without masses. CHEST: Clear to auscultation. CARDIOVASCULAR: Regular rate and rhythm. ABDOMEN: Soft and nontender. No palpable masses. Liver and spleen not palpable. No abdominal tenderness noted. : He has a Marroquin catheter in place. Unable to retract foreskin. IMPRESSION: Severe phimosis. PLAN: He is interested in proceeding with circumcision. He has been scheduled on more than one occasion, but has not been accomplished for one reason or another. If the patient is still in the hospital on Thursday, I can try and schedule a circumcision at that time. Otherwise, I would leave the Marroquin catheter in place at discharge. I am going to try and arrange for circumcision in the near future. Job ID: [id number]
--- NOTE | 2019-12-24 00:42 | PRG ---
DATE OF SERVICE: 12/23/2019 SUBJECTIVE: Mr. Martin remains in surgical floor. The patient was seen on rounds this evening. The patient is alert and awake. Pain is well controlled. He is able to work with Physical Therapy and Occupational Therapy. Vital signs are stable. The patient is able to have bowel today. Currently, the patient is on Marroquin catheter. Due to phimosis, Dr. Null saw the patient, planned to do circumcision on Thursday or if the patient is discharged before Thursday, he will need to be on Marroquin catheter and he will need to see Dr. Null to schedule circumcision after that. OBJECTIVE: GENERAL: The patient is lying in bed, comfortable, with no acute respiratory distress. VITAL SIGNS: Stable. LUNGS: Clear bilaterally. HEART: Regular rate and rhythm. ABDOMEN: Soft, nondistended. EXTREMITIES: Neurovascularly intact x4. Postop dressing clean, dry, intact. ASSESSMENT: 1. Status post ground level fall. 2. Right femoral neck fracture status post open reduction and internal fixation of right femoral neck fracture. 3. Diabetes type 2, uncontrolled. PLAN: Continue supportive care. Continue pain control. Continue DVT prophylaxis. Continue working with Physical Therapy and Occupational Therapy. We discussed circumcision plan and rehabilitation facility placement with the patient to arrange appropriately. Job ID: [id number]
[2019-12-24] MEDS: Ibuprofen 600 MG TAB PO SCH ×2 (03:13→12:25)
[2019-12-24] MEDS: Acetaminophen 325 MG TAB PO SCH ×2 (03:13→08:09)
[2019-12-24 07:53] LABS: #Eosinphils 0.2 thou/uL (0.0-0.7); #Monocytes 0.8 thou/uL (0.11-0.59); #Neutrophils 3.8 thou/uL (1.40-6.50); %Basophils 0.6 % (0.0-1.0); %Eosinophils 3.8 % (0.0-10.0); %Lymphocytes 16.6 % (21.0-51.0); %Monocytes 13.6 % (0.0-10.0); %Neutrophils 65.4 % (42.0-75.0); Hemoglobin 10.3 g/dL (14.0-18.0); Mean Corpuscular HGB CONC 32.7 g/dL (32.0-36.0); Mean Corpuscular Hemoglobin 29.5 pg (27.0-31.0); Mean Corpuscular Volume 90.2 fL (78.0-98.0); Mean Platelet Volume 7.7 fL (7.4-10.4); Platelet Count 162 thou/uL (130-400); RBC Distribution Width 12.4 % (11.5-14.5); Red Blood Cell (RBC) Count 3.48 mill/uL (4.70-6.10); White Blood Cell (WBC) Count 5.7 thou/uL (4.8-10.8)
[2019-12-24] MEDS: Insulin Glargine 20 UNITS in Pre-Filled Syringe 1 EACH SC SCH (08:08)
[2019-12-24] MEDS: Enoxaparin Sodium 40 MG/0.4 ML SYRINGE SC SCH (08:08)
[2019-12-24] MEDS: Famotidine 20 MG TAB PO SCH (08:09)
[2019-12-24] MEDS: Senokot S 8.6-50 MG TAB PO SCH (08:17)
[2019-12-24] MEDS: Polyethylene Glycol 3350 17 GM Packet PO SCH (08:17)
[2019-12-24 11:30] VITALS: BP 133/77; TEMP 98.3
[2019-12-24] MEDS: HumaLOG 300 UNITS/3 ML VIAL SC PRN (12:25)
--- NOTE | 2019-12-26 09:50 | DIS ---
DATE OF ADMISSION: 12/21/2019 DATE OF DISCHARGE: 12/24/2019 ADMISSION DIAGNOSES: 1. Status post ground-level fall. 2. Status post right femoral neck fracture. 3. Phimosis, requiring Marroquin catheter placement. 4. History of diabetes, hyperlipidemia, and constipation. CONSULTATIONS: Orthopedics, Dr. Schulte; Urology, Dr. Null. SUMMARY: The patient is a 79-year-old man who had a ground-level fall where he sustained a right femoral neck fracture. He underwent right hip hemiarthroplasty while he was here, which he tolerated that procedure well. His chronic phimosis required Marroquin catheter placement and was evaluated by Dr. Null. Dr. Null noted that the patient had been evaluated by Dr. Haider and had attempted to schedule circumcision multiple times, but the patient has canceled. The patient will follow up as an outpatient for this condition. Otherwise, he was transferred to inpatient rehab to continue his physical and occupational therapy. At the time of discharge, the patient was ambulatory, his bowel function had returned, his pain was controlled, he continued to progress with physical and occupational therapy. He will follow up with Dr. Schulte in 2 to 3 weeks, sooner as needed, and will follow up with Urology as discussed by their clinic. Job ID: [id number]
== END 2019-12-24 13:23 | DRG 470 ==
LOC: ERS 10:15 → SURG A 12:12 → 2SE 12-22 23:13 → SURG A 12-22 23:23
PROVIDERS: ADMIT Surgery; ATTEND Surgery
PROC: 0SRR0J9 Replacement of Right Hip Joint, Femoral Surface with Synthetic Substitute, Cemented, Open Approach (ICD-10-PCS; principal; 2019-12-21)
DX: S72.001A Fracture of unspecified part of neck of right femur, initial encounter for closed fracture (principal); E11.9 Type 2 diabetes mellitus without complications; E78.5 Hyperlipidemia, unspecified; E78.00 Pure hypercholesterolemia, unspecified; Z96.652 Presence of left artificial knee joint; W18.39XA Other fall on same level, initial encounter; K59.00 Constipation, unspecified
CPT/HCPCS: 36415; 36416; 70450; 71045; 72125; 72170; 80048; 83036; 85025; 85610; 93005; 96374; 96375; C1713; C1781; G0390; J0690; J1650; J1815; J1885; J2270; J2704; J3010

== ENCOUNTER 2020-01-16 09:41 | Emergency (ER) | payer MEDICARE, MEDICAID ==
[2020-01-16 12:35] LABS: Bilirubin Negative (Negative); Blood, Urine 2+ (Negative); Clarity Turbid (Clear); Glucose, Urine (Dipstick) 500 mg/dL (Negative); Leukocyte 500 Leu/uL (Negative); Nitrite Negative (Negative); Protein, Urine (Dipstick) 10 mg/dL (Neg-Trace); RBC/HPF 21-50 HPF (0-3); Squamous Epithelial 0-3 HPF (0-3); Urobilinogen Normal mg/dL (Less than 2); WBC/HPF Greater than 50 HPF (0-3)
[2020-01-16 12:46] LABS: Yeast-Budding 2+ HPF (None Seen)
[2020-01-16 12:47] LABS: Bacteria/HPF 2+ HPF (None Seen)
== END 2020-01-16 15:45 | disposition home or self-care (01) ==
LOC: ERS 09:41
DX: B37.49 Other urogenital candidiasis (principal); E11.9 Type 2 diabetes mellitus without complications; E78.5 Hyperlipidemia, unspecified; E78.00 Pure hypercholesterolemia, unspecified; Z79.4 Long term (current) use of insulin; Z79.899 Other long term (current) drug therapy
CPT/HCPCS: 81003; 81015; 87086; 99283

== ENCOUNTER 2020-02-25 17:57 | Emergency (ER) | payer MEDICARE, OTHER | END 2020-02-25 18:51 | disposition home or self-care (01) | LOC: ERS 17:57 | DX: L71.9 Rosacea, unspecified (principal); E11.9 Type 2 diabetes mellitus without complications; E78.5 Hyperlipidemia, unspecified | CPT/HCPCS: 99282 ==

== ENCOUNTER 2020-03-02 15:31 | Emergency (ER) | payer MEDICARE, OTHER | END 2020-03-02 16:20 | disposition home or self-care (01) | LOC: ERS 15:31 | DX: Z71.1 Person with feared health complaint in whom no diagnosis is made (principal); E11.9 Type 2 diabetes mellitus without complications; E78.5 Hyperlipidemia, unspecified; E78.00 Pure hypercholesterolemia, unspecified | CPT/HCPCS: 99283 ==

== ENCOUNTER 2020-03-03 18:39 | Emergency (ER) | payer MEDICARE, OTHER | END 2020-03-03 19:57 | disposition home or self-care (01) | LOC: ERS 18:39 | DX: L29.9 Pruritus, unspecified (principal); Z20.828 Contact with and (suspected) exposure to other viral communicable diseases; E78.5 Hyperlipidemia, unspecified; E78.00 Pure hypercholesterolemia, unspecified; E11.9 Type 2 diabetes mellitus without complications; Z79.4 Long term (current) use of insulin | CPT/HCPCS: 99283; U0003; 87635 ==

== ENCOUNTER 2020-06-02 15:37 | Emergency (ER) | payer MEDICARE, OTHER | END 2020-06-02 16:14 | disposition home or self-care (01) | LOC: ERS 15:37 | DX: L03.811 Cellulitis of head [any part, except face] (principal); E78.5 Hyperlipidemia, unspecified; E78.00 Pure hypercholesterolemia, unspecified; E11.9 Type 2 diabetes mellitus without complications | CPT/HCPCS: 99283 ==

== ENCOUNTER 2020-06-28 18:17 | Emergency (ER) | payer MEDICARE, OTHER | END 2020-06-28 18:57 | disposition home or self-care (01) | LOC: ERS 18:17 | DX: L01.00 Impetigo, unspecified (principal); E11.9 Type 2 diabetes mellitus without complications; E78.5 Hyperlipidemia, unspecified; E78.00 Pure hypercholesterolemia, unspecified; Z79.899 Other long term (current) drug therapy | CPT/HCPCS: 99282 ==

== ENCOUNTER 2020-08-30 12:31 | Emergency (ER) | payer MEDICARE, MEDICAID | END 2020-08-30 13:20 | disposition home or self-care (01) | LOC: ERS 12:31 | DX: L02.811 Cutaneous abscess of head [any part, except face] (principal); K59.00 Constipation, unspecified; E11.9 Type 2 diabetes mellitus without complications; E78.5 Hyperlipidemia, unspecified; E78.00 Pure hypercholesterolemia, unspecified; Z79.899 Other long term (current) drug therapy | CPT/HCPCS: 99282 ==

== ENCOUNTER 2021-01-12 18:56 | Emergency (ER) | payer MEDICARE, MEDICAID | END 2021-01-12 19:15 | disposition home or self-care (01) | LOC: ERS 18:56 | DX: K12.0 Recurrent oral aphthae (principal); E11.9 Type 2 diabetes mellitus without complications; E78.5 Hyperlipidemia, unspecified; E78.00 Pure hypercholesterolemia, unspecified; Z79.899 Other long term (current) drug therapy | CPT/HCPCS: 99281 ==

== ENCOUNTER 2021-04-14 09:38 | Emergency (ER) | payer MEDICARE, MEDICAID | END 2021-04-14 11:36 | disposition home or self-care (01) | LOC: ERS 09:38 | DX: R05 Cough (principal); R63.4 Abnormal weight loss; E11.9 Type 2 diabetes mellitus without complications; E78.5 Hyperlipidemia, unspecified; E78.00 Pure hypercholesterolemia, unspecified; Z79.899 Other long term (current) drug therapy | CPT/HCPCS: 71045 ==

== ENCOUNTER 2021-05-29 15:13 | Emergency (ER) | payer MEDICARE, MEDICAID | END 2021-05-29 16:45 | disposition left against medical advice (07) | LOC: ERS 15:13 | DX: Z53.21 Procedure and treatment not carried out due to patient leaving prior to being seen by health care provider (principal) ==

== ENCOUNTER 2021-05-30 12:33 | Emergency (ER) | payer MEDICARE, MEDICAID ==
[2021-05-30 13:21] LABS: #Eosinphils 0.1 thou/uL (0.0-0.7); #Monocytes 0.6 thou/uL (0.11-0.59); #Neutrophils 4.6 thou/uL (1.40-6.50); %Basophils 0.7 % (0.0-1.0); %Eosinophils 1.3 % (0.0-10.0); %Lymphocytes 16.3 % (21.0-51.0); %Monocytes 8.7 % (0.0-10.0); %Neutrophils 73.1 % (42.0-75.0); Hemoglobin 14.5 g/dL (14.0-18.0); Mean Corpuscular HGB CONC 31.1 g/dL (32.0-36.0); Mean Corpuscular Hemoglobin 27.6 pg (27.0-31.0); Mean Corpuscular Volume 88.6 fL (78.0-98.0); Platelet Count 244 thou/uL (130-400); RBC Distribution Width 12.7 % (11.5-14.5); Red Blood Cell (RBC) Count 5.25 mill/uL (4.70-6.10); White Blood Cell (WBC) Count 6.3 thou/uL (4.8-10.8)
[2021-05-30] MEDS ORDERED: Bacitracin 1 PK ONE (13:33)
[2021-05-30] MEDS ORDERED: Boostrix 0.5 ML (Tdap) VIAL ONE (13:33)
[2021-05-30 13:39] LABS: ALT (SGPT) 14 U/L (8-55); AST (SGOT) 17 U/L (5-34); Alkaline Phosphatase 103 U/L (40-110); Anion Gap 13 mmol/L (10-20); BUN (Urea Nitrogen) 7 mg/dL (8.4-25.7); Calc. Creatinine Clearance 0 mL/min (70-130); Calcium 9.1 mg/dL (7.8-10.44); Carbon Dioxide 27 mmol/L (23-31); Chloride 99 mmol/L (98-107); Globulin 2.9 g/dL (2.4-3.5); Glucose 377 mg/dL (83-110); Potassium 4.2 mmol/L (3.5-5.1); Protein, Total 6.9 g/dL (5.8-8.1); Sodium 135 mmol/L (136-145)
== END 2021-05-30 14:02 | disposition home or self-care (01) ==
LOC: ERS 12:33
DX: S51.812A Laceration without foreign body of left forearm, initial encounter (principal); L08.9 Local infection of the skin and subcutaneous tissue, unspecified; I10 Essential (primary) hypertension; E11.9 Type 2 diabetes mellitus without complications; E78.5 Hyperlipidemia, unspecified; Z23 Encounter for immunization; W01.198A Fall on same level from slipping, tripping and stumbling with subsequent striking against other object, initial encounter
CPT/HCPCS: 36415; 80053; 85025; 90471; 90715

== ENCOUNTER 2021-07-16 14:45 | Emergency (ER) | payer MEDICARE, MEDICAID | END 2021-07-16 16:25 | disposition home or self-care (01) | LOC: ERS 14:45 | DX: K13.0 Diseases of lips (principal); I10 Essential (primary) hypertension; E78.5 Hyperlipidemia, unspecified; E11.9 Type 2 diabetes mellitus without complications | CPT/HCPCS: 99283 ==

== ENCOUNTER 2021-11-04 15:38 | Outpatient (CLI) | payer MEDICARE, MEDICAID | END 2021-11-04 15:39 | disposition home or self-care (01) | LOC: BICRAD 15:38 | PROVIDERS: ATTEND Family Medicine | DX: K59.00 Constipation, unspecified (principal); J98.4 Other disorders of lung | CPT/HCPCS: 74018 ==

== ENCOUNTER 2022-02-23 15:26 | Inpatient (IN) | payer MEDICARE, MEDICAID ==
[~2022-02-23 15:26] MED LIST: ISOVUE-370 76%-LOCM 1 ML ONE
[2022-02-23 16:13] LABS: #Eosinphils 0.1 thou/uL (0.0-0.7); #Lymphocytes 0.5 thou/uL (1.20-3.40); #Monocytes 0.7 thou/uL (0.11-0.59); #Neutrophils 4.9 thou/uL (1.40-6.50); %Lymphocytes 8.4 % (21.0-51.0); %Monocytes 11.6 % (0.0-10.0); Hemoglobin 13.3 g/dL (14.0-18.0); Mean Corpuscular HGB CONC 33.5 g/dL (32.0-36.0); Mean Corpuscular Hemoglobin 30.8 pg (27.0-31.0); Mean Corpuscular Volume 91.8 fL (78.0-98.0); RBC Distribution Width 12.2 % (11.5-14.5); Red Blood Cell (RBC) Count 4.33 mill/uL (4.70-6.10); White Blood Cell (WBC) Count 6.2 thou/uL (4.8-10.8)
[2022-02-23 16:22] LABS: MDiff Complete? YES; Mean Platelet Volume 8.8 fL (7.4-10.4); Platelet Count 52 thou/uL (130-400); Platelet Morphology Comment Appears Decreased; Polychromasia SLIGHT = 2-3 cells (100X) (0-2/hpf)
[2022-02-23 16:23] LABS: INR-International Normal Ratio 1.2; Prothrombin Time 15.8 sec (12.0-14.7)
[2022-02-23 16:30] LABS: ALT (SGPT) 14 U/L (8-55); AST (SGOT) 21 U/L (5-34); Albumin 3.7 g/dL (3.4-4.8); Alkaline Phosphatase 80 U/L (40-110); Anion Gap 16 mmol/L (10-20); BUN (Urea Nitrogen) 15 mg/dL (8.4-25.7); Bilirubin, Total 1.2 mg/dL (0.2-1.2); CK (CPK) 68 U/L (30-200); Calc. Creatinine Clearance 0 mL/min (70-130); Calcium 8.7 mg/dL (7.8-10.44); Carbon Dioxide 23 mmol/L (23-31); Chloride 99 mmol/L (98-107); Globulin 3.2 g/dL (2.4-3.5); Glucose 232 mg/dL (83-110); Lipase 22 U/L (8-78); Magnesium 1.9 mg/dL (1.6-2.6); Potassium 3.9 mmol/L (3.5-5.1); Protein, Total 6.9 g/dL (5.8-8.1); Sodium 134 mmol/L (136-145)
[2022-02-23 16:31] LABS: Bilirubin Negative (Negative); Blood, Urine 1+ (Negative); Clarity Turbid (Clear); Glucose, Urine (Dipstick) Greater than 1000 mg/dL (Negative); Ketone, Urine 40 mg/dL (Negative); Leukocyte 500 Leu/uL (Negative); Nitrite Negative (Negative); Protein, Urine (Dipstick) 70 mg/dL (Neg-Trace); Specific Gravity, Urine 1.022 (1.002-1.036); Squamous Epithelial 0-3 HPF (0-3); Urobilinogen Normal mg/dL (Less than 2)
[2022-02-23 16:44] LABS: Bacteria/HPF 2+ HPF (None Seen); Sperm/HPF 3+ HPF (None Seen)
[2022-02-23 16:45] LABS: Yeast-Budding Rare HPF (None Seen)
[2022-02-23] MEDS ORDERED: Cefepime 2 GM VIAL ONE (17:18)
[2022-02-23 18:28] LABS: SARS-CoV-2 NAA Rapid Test DETECTED (NotDetected)
[2022-02-23] MEDS ORDERED: Polyethylene Glycol 3350 17 GM Packet PO SCH (18:45)
[2022-02-23 19:07] LABS: Lactic Acid 1.2 mmol/L (0.5-2.2)
[2022-02-23] MEDS ORDERED: Ondansetron ODT 4 MG TAB PO PRN (19:07)
[2022-02-23] MEDS ORDERED: Ondansetron PF 4 MG/2 ML Vial IVP PRN (19:07)
[2022-02-23 19:16] LABS: Troponin I 0.051 ng/mL (< 0.028)
[2022-02-23] MEDS ORDERED: Dextrose 5% in Water 1,000 ML IV PRN (19:41)
[2022-02-23] MEDS ORDERED: Dextrose 50% Abboject 50 ML SYRINGE SLOW IVP PRN (19:41)
[2022-02-23] MEDS ORDERED: HumaLOG 300 UNITS/3 ML VIAL SC PRN (19:41)
[2022-02-23] MEDS ORDERED: Benzonatate 100 MG CAP PO PRN (19:44)
[2022-02-23] MEDS ORDERED: Lactated Ringer's 1,000 ML IV SCH (20:45)
[2022-02-23] MEDS: Acetaminophen 325 MG TAB PO PRN (22:05)
[2022-02-23] MEDS: Senokot S 8.6-50 MG TAB PO SCH (22:05)
[2022-02-23] MEDS: guaiFENesin/DM ER PO SCH (22:05)
[2022-02-23] MEDS: HumaLOG 300 UNITS/3 ML VIAL SC PRN (22:06)
[2022-02-23 23:31] LABS: Phosphorus 2.2 mg/dL (2.3-4.7)
[2022-02-23 23:34] LABS: Iron 20 ug/dL (65-175); Iron Binding Capacity, Total 221 mcg/dL (261-462)
[2022-02-23 23:50] LABS: Troponin I 0.937 ng/mL (< 0.028)
[2022-02-23 23:52] LABS: Ferritin 364.95 ng/mL (22-322)
[2022-02-23 23:57] LABS: HIV (1/2) Antibody/Antigen Non-Reactive (NonReactive)
[2022-02-24] MEDS ORDERED: Heparin 25,000 units/D5W 500 ML IVPB SCH (00:30)
[2022-02-24 00:37] VITALS: BMI 23.1
[2022-02-24 01:19] LABS: Hemoglobin 11.8 g/dL (14.0-18.0); Platelet Count 148 thou/uL (130-400)
[2022-02-24 01:44] LABS: Troponin I 3.514 ng/mL (< 0.028)
[2022-02-24] MEDS: Heparin 10,000 UNITS/ 10 ML VIAL SLOW IVP SCH (01:54)
[2022-02-24] MEDS ORDERED: Heparin 25,000 units/D5W 500 ML ONE (01:57)
[2022-02-24 04:26] LABS: #Lymphocytes 0.9 thou/uL (1.20-3.40); #Neutrophils 4.7 thou/uL (1.40-6.50); %Basophils 0.1 % (0.0-1.0); %Eosinophils 0.3 % (0.0-10.0); %Lymphocytes 13.4 % (21.0-51.0); %Monocytes 14.8 % (0.0-10.0); %Neutrophils 71.4 % (42.0-75.0); Hemoglobin 12.1 g/dL (14.0-18.0); Mean Corpuscular HGB CONC 32.3 g/dL (32.0-36.0); Mean Corpuscular Hemoglobin 30.5 pg (27.0-31.0); Mean Corpuscular Volume 94.5 fL (78.0-98.0); Mean Platelet Volume 7.1 fL (7.4-10.4); Platelet Count 157 thou/uL (130-400); RBC Distribution Width 12.2 % (11.5-14.5); Red Blood Cell (RBC) Count 3.98 mill/uL (4.70-6.10); White Blood Cell (WBC) Count 6.5 thou/uL (4.8-10.8)
[2022-02-24 04:56] LABS: ALT (SGPT) 15 U/L (8-55); AST (SGOT) 38 U/L (5-34); Albumin 3.1 g/dL (3.4-4.8); Alkaline Phosphatase 63 U/L (40-110); Anion Gap 14 mmol/L (10-20); BUN (Urea Nitrogen) 13 mg/dL (8.4-25.7); Bilirubin, Total 0.8 mg/dL (0.2-1.2); Calc. Creatinine Clearance 89 mL/min (70-130); Calcium 8.4 mg/dL (7.8-10.44); Carbon Dioxide 21 mmol/L (23-31); Chloride 101 mmol/L (98-107); Globulin 2.5 g/dL (2.4-3.5); Glucose 99 mg/dL (83-110); Potassium 3.4 mmol/L (3.5-5.1); Protein, Total 5.6 g/dL (5.8-8.1); Sodium 133 mmol/L (136-145)
[2022-02-24 05:00] LABS: Troponin I 5.394 ng/mL (< 0.028)
[2022-02-24] MEDS: cefTRIAXone\\ROCEPHIN 1 GM in Sodium Chloride 0.9% 100 ML IVPB SCH (06:25)
[2022-02-24 06:52] LABS: PTT 126.1 sec (22.9-36.1)
[2022-02-24] MEDS ORDERED: Enoxaparin Sodium 40 MG/0.4 ML SYRINGE SC SCH (09:00)
[2022-02-24 10:14] LABS: Troponin I 9.228 ng/mL (< 0.028)
[2022-02-24] MEDS: Empagliflozin 25 MG TAB PO SCH (10:18)
[2022-02-24] MEDS: Ferrous Sulfate 325 MG TAB PO SCH ×2 (10:18→12:58)
[2022-02-24] MEDS: PHOS-NAK 1 PKT PACK PO SCH ×3 (10:18→18:09)
[2022-02-24] MEDS: Lisinopril 5 MG TAB PO SCH (10:19)
[2022-02-24] MEDS: Atorvastatin Calcium 40 MG TAB PO SCH (10:19)
[2022-02-24] MEDS: guaiFENesin/DM ER PO SCH ×2 (10:20→21:16)
[2022-02-24] MEDS: Polyethylene Glycol 3350 17 GM Packet PO SCH ×2 (10:21→13:03)
[2022-02-24] MEDS: Senokot S 8.6-50 MG TAB PO SCH ×2 (10:26→21:16)
[2022-02-24] MEDS: Insulin Glargine 30 UNITS/0.3 ML VIAL SC SCH (18:10)
[2022-02-25] MEDS: cefTRIAXone\\ROCEPHIN 1 GM in Sodium Chloride 0.9% 100 ML IVPB SCH (05:08)
[2022-02-25] MEDS: Acetaminophen 325 MG TAB PO PRN (05:08)
[2022-02-25] MEDS: Empagliflozin 25 MG TAB PO SCH (09:30)
[2022-02-25] MEDS: guaiFENesin/DM ER PO SCH ×2 (09:30→20:27)
[2022-02-25] MEDS: Atorvastatin Calcium 40 MG TAB PO SCH (09:30)
[2022-02-25] MEDS: Lisinopril 5 MG TAB PO SCH ×2 (09:30→09:40)
[2022-02-25] MEDS: Polyethylene Glycol 3350 17 GM Packet PO SCH (09:31)
[2022-02-25] MEDS: Insulin Glargine 30 UNITS/0.3 ML VIAL SC SCH (09:31)
[2022-02-25] MEDS: Senokot S 8.6-50 MG TAB PO SCH ×2 (09:31→20:27)
[2022-02-25 09:38] LABS: #Lymphocytes 1.1 thou/uL (1.20-3.40); #Neutrophils 7.4 thou/uL (1.40-6.50); %Basophils 0.3 % (0.0-1.0); %Eosinophils 0.1 % (0.0-10.0); %Lymphocytes 11.2 % (21.0-51.0); %Monocytes 10.7 % (0.0-10.0); %Neutrophils 77.8 % (42.0-75.0); Hemoglobin 13.4 g/dL (14.0-18.0); Mean Corpuscular HGB CONC 32.6 g/dL (32.0-36.0); Mean Corpuscular Hemoglobin 29.8 pg (27.0-31.0); Mean Corpuscular Volume 91.6 fL (78.0-98.0); Mean Platelet Volume 7.1 fL (7.4-10.4); Platelet Count 178 thou/uL (130-400); RBC Distribution Width 12.2 % (11.5-14.5); Red Blood Cell (RBC) Count 4.48 mill/uL (4.70-6.10); White Blood Cell (WBC) Count 9.5 thou/uL (4.8-10.8)
[2022-02-25 09:50] LABS: Anion Gap 14 mmol/L (10-20); BUN (Urea Nitrogen) 15 mg/dL (8.4-25.7); Calc. Creatinine Clearance 87 mL/min (70-130); Calcium 8.6 mg/dL (7.8-10.44); Carbon Dioxide 25 mmol/L (23-31); Chloride 100 mmol/L (98-107); Glucose 95 mg/dL (83-110); Potassium 3.4 mmol/L (3.5-5.1); Sodium 136 mmol/L (136-145)
[2022-02-25] MEDS ORDERED: Tamsulosin HCl 0.4 MG CAP PO SCH (12:15)
[2022-02-25] MEDS: HumaLOG 300 UNITS/3 ML VIAL SC PRN (21:42)
[2022-02-26 01:02] LABS: Hemoglobin 14.7 g/dL (14.0-18.0); Platelet Count 181 thou/uL (130-400)
[2022-02-26] MEDS: cefTRIAXone\\ROCEPHIN 1 GM in Sodium Chloride 0.9% 100 ML IVPB SCH (04:36)
[2022-02-26 05:02] LABS: #Lymphocytes 1.1 thou/uL (1.20-3.40); #Monocytes 0.9 thou/uL (0.11-0.59); #Neutrophils 6.6 thou/uL (1.40-6.50); %Eosinophils 0.6 % (0.0-10.0); %Lymphocytes 12.8 % (21.0-51.0); %Neutrophils 76.7 % (42.0-75.0); Hemoglobin 13.9 g/dL (14.0-18.0); Mean Corpuscular Hemoglobin 30.6 pg (27.0-31.0); Mean Corpuscular Volume 92.8 fL (78.0-98.0); Mean Platelet Volume 7.8 fL (7.4-10.4); Platelet Count 188 thou/uL (130-400); RBC Distribution Width 12.2 % (11.5-14.5); Red Blood Cell (RBC) Count 4.56 mill/uL (4.70-6.10); White Blood Cell (WBC) Count 8.6 thou/uL (4.8-10.8)
[2022-02-26 05:05] LABS: Anion Gap 16 mmol/L (10-20); BUN (Urea Nitrogen) 15 mg/dL (8.4-25.7); Calc. Creatinine Clearance 91 mL/min (70-130); Calcium 8.6 mg/dL (7.8-10.44); Carbon Dioxide 25 mmol/L (23-31); Chloride 99 mmol/L (98-107); Glucose 74 mg/dL (83-110); Potassium 3.2 mmol/L (3.5-5.1); Sodium 137 mmol/L (136-145)
[2022-02-26] MEDS: Heparin 10,000 UNITS/ 10 ML VIAL SLOW IVP SCH (07:38)
[2022-02-26] MEDS ORDERED: Iopamidol 370 76% 100 ML VIAL ONE (08:00)
[2022-02-26] MEDS ORDERED: Tamsulosin HCl 0.4 MG CAP PO SCH (09:00)
[2022-02-26] MEDS: Ferrous Sulfate 325 MG TAB PO SCH (09:25)
[2022-02-26] MEDS: Empagliflozin 25 MG TAB PO SCH (09:25)
[2022-02-26] MEDS: Atorvastatin Calcium 40 MG TAB PO SCH (09:25)
[2022-02-26] MEDS: Lisinopril 5 MG TAB PO SCH (09:25)
[2022-02-26] MEDS: Senokot S 8.6-50 MG TAB PO SCH (09:25)
[2022-02-26] MEDS: Polyethylene Glycol 3350 17 GM Packet PO SCH (09:26)
[2022-02-26] MEDS: guaiFENesin/DM ER PO SCH (09:26)
[2022-02-26] MEDS: Insulin Glargine 30 UNITS/0.3 ML VIAL SC SCH (09:26)
[2022-02-26] MEDS ORDERED: Potassium Chloride 20 MEQ TAB PO SCH (10:00)
[2022-02-26 16:23] VITALS: BP 134/72; TEMP 97.4
== END 2022-02-26 19:20 | disposition home health service (06) | DRG 871 ==
LOC: ERS 15:26 → 2NO 18:31
PROVIDERS: ADMIT Family Medicine; ATTEND Family Medicine
PROC: 3E03329 Introduction of Other Anti-infective into Peripheral Vein, Percutaneous Approach (ICD-10-PCS; principal; 2022-02-23)
PROC: 8E0ZXY6 Isolation (ICD-10-PCS; 2022-02-23)
DX: B37.7 Candidal sepsis (principal); U07.1 COVID-19; I21.A1 Myocardial infarction type 2; B37.49 Other urogenital candidiasis; E11.21 Type 2 diabetes mellitus with diabetic nephropathy; E11.42 Type 2 diabetes mellitus with diabetic polyneuropathy; E78.5 Hyperlipidemia, unspecified; I10 Essential (primary) hypertension; E55.9 Vitamin D deficiency, unspecified; I45.10 Unspecified right bundle-branch block; R94.31 Abnormal electrocardiogram [ECG] [EKG]; K59.00 Constipation, unspecified; H91.90 Unspecified hearing loss, unspecified ear; D50.9 Iron deficiency anemia, unspecified; L71.9 Rosacea, unspecified; M17.10 Unilateral primary osteoarthritis, unspecified knee; N47.1 Phimosis; Z79.84 Long term (current) use of oral hypoglycemic drugs; Z79.4 Long term (current) use of insulin; Z79.899 Other long term (current) drug therapy; Z90.49 Acquired absence of other specified parts of digestive tract
CPT/HCPCS: 36415; 36416; 70450; 71045; 71275; 74177; 80048; 80053; 81003; 81015; 82550; 82728; 82746; 83540; 83550; 83605; 83690; 83735; 83880; 84100; 84145; 84443; 84484; 85014; 85018; 85025; 85049; 85060; 85610; 85730; 87040; 87077; 87086; 87149; 87205; 87389; 93005; 93010; 93306; J0692; J0696; J1644; J1815; J3490; J7120; Q9966; Q9967; U0002

== ENCOUNTER 2022-03-17 18:51 | Emergency (ER) | payer MEDICARE, MEDICAID ==
[2022-03-17 19:37] LABS: #Basophils 0.1 thou/uL (0.0-0.2); #Lymphocytes 0.9 thou/uL (1.20-3.40); #Monocytes 0.5 thou/uL (0.11-0.59); #Neutrophils 4.3 thou/uL (1.40-6.50); %Eosinophils 0.8 % (0.0-10.0); %Monocytes 9.1 % (0.0-10.0); %Neutrophils 74.1 % (42.0-75.0); Hemoglobin 12.9 g/dL (14.0-18.0); Mean Corpuscular HGB CONC 31.9 g/dL (32.0-36.0); Mean Corpuscular Hemoglobin 29.4 pg (27.0-31.0); Mean Corpuscular Volume 92.2 fL (78.0-98.0); Mean Platelet Volume 7.1 fL (7.4-10.4); Platelet Count 218 thou/uL (130-400); RBC Distribution Width 12.5 % (11.5-14.5); Red Blood Cell (RBC) Count 4.39 mill/uL (4.70-6.10); White Blood Cell (WBC) Count 5.8 thou/uL (4.8-10.8)
[2022-03-17 19:59] LABS: ALT (SGPT) 12 U/L (8-55); AST (SGOT) 16 U/L (5-34); Albumin 3.8 g/dL (3.4-4.8); Alkaline Phosphatase 80 U/L (40-110); Anion Gap 13 mmol/L (10-20); BUN (Urea Nitrogen) 18 mg/dL (8.4-25.7); Bilirubin, Total 1.1 mg/dL (0.2-1.2); Calc. Creatinine Clearance 0 mL/min (70-130); Calcium 8.8 mg/dL (7.8-10.44); Carbon Dioxide 26 mmol/L (23-31); Chloride 106 mmol/L (98-107); Estimated GFR 90; Globulin 2.8 g/dL (2.4-3.5); Glucose 91 mg/dL (83-110); Lipase 7 U/L (8-78); Potassium 3.8 mmol/L (3.5-5.1); Protein, Total 6.6 g/dL (5.8-8.1); Sodium 141 mmol/L (136-145)
== END 2022-03-17 21:28 | disposition home or self-care (01) ==
LOC: ERS 18:51
DX: S70.02XA Contusion of left hip, initial encounter (principal); I10 Essential (primary) hypertension; E11.9 Type 2 diabetes mellitus without complications; E78.5 Hyperlipidemia, unspecified; Z79.899 Other long term (current) drug therapy; W19.XXXA Unspecified fall, initial encounter
CPT/HCPCS: 36415; 51798; 71045; 72170; 80053; 83605; 83690; 84484; 85025; 87040; 93005

== ENCOUNTER 2022-06-08 16:29 | Emergency (ER) | payer MEDICARE, MEDICAID | END 2022-06-08 16:53 | disposition home or self-care (01) | LOC: ERS 16:29 | DX: R19.4 Change in bowel habit (principal); I10 Essential (primary) hypertension; E78.5 Hyperlipidemia, unspecified; E11.9 Type 2 diabetes mellitus without complications | CPT/HCPCS: 99283 ==

== ENCOUNTER 2022-06-15 14:52 | Emergency (ER) | payer MEDICARE, MEDICAID ==
[~2022-06-15 14:52] MED LIST changes: -ISOVUE-370 76%-LOCM 1 ML ONE; +Iopamidol 370 76% 50 ML VIAL FS ONE
[2022-06-15 15:27] LABS: #Basophils 0.1 thou/uL (0.0-0.2); #Lymphocytes 0.9 thou/uL (1.20-3.40); #Monocytes 0.6 thou/uL (0.11-0.59); #Neutrophils 4.7 thou/uL (1.40-6.50); %Eosinophils 0.3 % (0.0-10.0); %Lymphocytes 13.7 % (21.0-51.0); %Monocytes 10.1 % (0.0-10.0); %Neutrophils 74.9 % (42.0-75.0); Hemoglobin 12.8 g/dL (14.0-18.0); Mean Corpuscular HGB CONC 32.8 g/dL (32.0-36.0); Mean Corpuscular Hemoglobin 29.2 pg (27.0-31.0); Mean Corpuscular Volume 89.1 fL (78.0-98.0); Mean Platelet Volume 7.5 fL (7.4-10.4); Platelet Count 199 thou/uL (130-400); RBC Distribution Width 12.7 % (11.5-14.5); Red Blood Cell (RBC) Count 4.38 mill/uL (4.70-6.10); White Blood Cell (WBC) Count 6.3 thou/uL (4.8-10.8)
[2022-06-15 15:42] LABS: ALT (SGPT) 17 U/L (8-55); AST (SGOT) 22 U/L (5-34); Albumin 3.6 g/dL (3.4-4.8); Alkaline Phosphatase 79 U/L (40-110); Anion Gap 12 mmol/L (10-20); BUN (Urea Nitrogen) 16 mg/dL (8.4-25.7); Bilirubin, Total 0.8 mg/dL (0.2-1.2); Calc. Creatinine Clearance 0 mL/min (70-130); Calcium 8.7 mg/dL (7.8-10.44); Carbon Dioxide 26 mmol/L (23-31); Chloride 103 mmol/L (98-107); Estimated GFR 90; Globulin 2.5 g/dL (2.4-3.5); Glucose 230 mg/dL (83-110); Lipase 16 U/L (8-78); Potassium 3.8 mmol/L (3.5-5.1); Protein, Total 6.1 g/dL (5.8-8.1); Sodium 137 mmol/L (136-145)
[2022-06-15 16:55] LABS: Bilirubin Negative (Negative); Blood, Urine Trace (Negative); Clarity Turbid (Clear); Glucose, Urine (Dipstick) 300 mg/dL (Negative); Ketone, Urine Negative (Negative); Leukocyte 500 Leu/uL (Negative); Nitrite Negative (Negative); Protein, Urine (Dipstick) Negative (Neg-Trace); Specific Gravity, Urine 1.017 (1.002-1.036); Urobilinogen Normal mg/dL (Less than 2); pH, Urine 7.5 (5.0-9.0)
[2022-06-15 17:10] LABS: RBC/HPF 0-3 HPF (0-3); Squamous Epithelial None Seen HPF (0-3); WBC/HPF 21-50 HPF (0-3)
[2022-06-15 17:11] LABS: Bacteria/HPF 1+ HPF (None Seen); Yeast-Hyphae 3+ HPF (None Seen)
[2022-06-15] MEDS ORDERED: cefTRIAXone\\ROCEPHIN 1 GM VIAL ONE ×2 (17:29→17:35)
== END 2022-06-15 18:40 | disposition home or self-care (01) ==
LOC: ERS 14:52
DX: N39.0 Urinary tract infection, site not specified (principal); R53.1 Weakness; I10 Essential (primary) hypertension; E11.9 Type 2 diabetes mellitus without complications; Z79.84 Long term (current) use of oral hypoglycemic drugs
CPT/HCPCS: 36415; 74177; 80053; 81003; 81015; 83690; 84484; 85025; 87086; 93005; 96365; J0696; Q9967

== ENCOUNTER 2022-08-29 05:36 | Emergency (ER) | payer MEDICARE, OTHER ==
[2022-08-29] MEDS ORDERED: Ketorolac Tromethamine 30 MG/ML VIAL ONE (06:06)
[2022-08-29 06:12] LABS: #Basophils 0.1 thou/uL (0.0-0.2); #Eosinphils 0.1 thou/uL (0.0-0.7); #Lymphocytes 0.9 thou/uL (1.20-3.40); #Monocytes 0.5 thou/uL (0.11-0.59); #Neutrophils 4.4 thou/uL (1.40-6.50); %Basophils 1.2 % (0.0-1.0); %Eosinophils 1.2 % (0.0-10.0); %Lymphocytes 14.4 % (21.0-51.0); %Monocytes 8.9 % (0.0-10.0); %Neutrophils 74.3 % (42.0-75.0); Hemoglobin 13.1 g/dL (14.0-18.0); Mean Corpuscular HGB CONC 32.8 g/dL (32.0-36.0); Mean Corpuscular Hemoglobin 30.1 pg (27.0-31.0); Mean Corpuscular Volume 91.8 fl (78.0-98.0); Mean Platelet Volume 7.3 fL (7.4-10.4); Platelet Count 204 10x3/uL (130-400); RBC Distribution Width 12.9 % (11.5-14.5); Red Blood Cell (RBC) Count 4.36 mill/uL (4.70-6.10); White Blood Cell (WBC) Count 5.9 10x3/uL (4.8-10.8)
[2022-08-29 06:36] LABS: ALT (SGPT) 18 U/L (8-55); AST (SGOT) 20 U/L (5-34); Albumin 3.6 g/dL (3.4-4.8); Alkaline Phosphatase 83 U/L (40-110); Anion Gap 13 mmol/L (10-20); BUN (Urea Nitrogen) 19 mg/dL (8.4-25.7); Bilirubin, Total 0.8 mg/dL (0.2-1.2); Calc. Creatinine Clearance 0 mL/min (70-130); Calcium 9.2 mg/dL (7.8-10.44); Carbon Dioxide 28 mmol/L (23-31); Chloride 97 mmol/L (98-107); Estimated GFR 89; Globulin 2.9 g/dL (2.4-3.5); Glucose 330 mg/dL (83-110); Protein, Total 6.5 g/dL (5.8-8.1); Sodium 134 mmol/L (136-145)
[2022-08-29 06:43] LABS: Bilirubin Negative (Negative); Blood, Urine Trace (Negative); Clarity Turbid (Clear); Glucose, Urine (Dipstick) Greater than 1000 mg/dL (Negative); Ketone, Urine Negative (Negative); Leukocyte 500 Leu/uL (Negative); Nitrite Negative (Negative); Protein, Urine (Dipstick) 20 mg/dL (Neg-Trace); Specific Gravity, Urine 1.017 (1.002-1.036); Urobilinogen Normal mg/dL (Less than 2); pH, Urine 6.5 (5.0-9.0)
[2022-08-29 06:55] LABS: Bacteria/HPF 1+ HPF (None Seen); RBC/HPF 0-3 HPF (0-3); Squamous Epithelial 0-3 HPF (0-3)
== END 2022-08-29 09:08 | disposition home or self-care (01) ==
LOC: ERS 05:36
DX: N39.0 Urinary tract infection, site not specified (principal); I10 Essential (primary) hypertension; E11.9 Type 2 diabetes mellitus without complications; E78.5 Hyperlipidemia, unspecified
CPT/HCPCS: 36415; 70450; 72125; 80053; 81003; 81015; 85025; 87086; 96374; J1885

== ENCOUNTER 2022-09-06 19:57 | Emergency (ER) | payer MEDICARE, OTHER | END 2022-09-06 23:15 | disposition home or self-care (01) | LOC: ERS 19:57 | DX: S09.90XA Unspecified injury of head, initial encounter (principal); E78.5 Hyperlipidemia, unspecified; E11.9 Type 2 diabetes mellitus without complications; I10 Essential (primary) hypertension; W19.XXXA Unspecified fall, initial encounter | CPT/HCPCS: 36416; 70450; 72170 ==

== ENCOUNTER 2023-03-30 10:29 | Emergency (ER) | payer MEDICARE, OTHER ==
[2023-03-30 12:39] LABS: #Eosinphils 0.1 thou/uL (0.0-0.7); #Monocytes 0.7 thou/uL (0.11-0.59); #Neutrophils 2.8 thou/uL (1.40-6.50); %Basophils 0.7 % (0.0-1.0); %Lymphocytes 15.7 % (21.0-51.0); %Monocytes 16.8 % (0.0-10.0); %Neutrophils 64.3 % (42.0-75.0); Hemoglobin 11.5 g/dL (14.0-18.0); Mean Corpuscular HGB CONC 33.6 g/dL (32.0-36.0); Mean Corpuscular Hemoglobin 29.1 pg (27.0-31.0); Mean Corpuscular Volume 86.6 fl (78.0-98.0); Mean Platelet Volume 9.2 fL (7.4-10.4); Platelet Count 182 10x3/uL (130-400); RBC Distribution Width 13.1 % (11.5-14.5); Red Blood Cell (RBC) Count 3.95 mill/uL (4.70-6.10); White Blood Cell (WBC) Count 4.4 10x3/uL (4.8-10.8)
[2023-03-30 13:04] LABS: ALT (SGPT) 22 U/L (8-55); AST (SGOT) 24 U/L (5-34); Albumin 3.5 g/dL (3.4-4.8); Alkaline Phosphatase 91 U/L (40-110); Anion Gap 10 mmol/L (10-20); BUN (Urea Nitrogen) 22 mg/dL (8.4-25.7); Bilirubin, Total 0.5 mg/dL (0.2-1.2); Calc. Creatinine Clearance 0 mL/min (70-130); Calcium 8.8 mg/dL (7.8-10.44); Carbon Dioxide 28 mmol/L (23-31); Chloride 101 mmol/L (98-107); Estimated GFR 88; Globulin 2.8 g/dL (2.4-3.5); Glucose 232 mg/dL (83-110); Potassium 4.5 mmol/L (3.5-5.1); Protein, Total 6.3 g/dL (5.8-8.1); Sodium 134 mmol/L (136-145)
== END 2023-03-30 17:21 ==
LOC: ERS 10:29
DX: R29.6 Repeated falls (principal); E11.9 Type 2 diabetes mellitus without complications; I10 Essential (primary) hypertension; Z79.84 Long term (current) use of oral hypoglycemic drugs
CPT/HCPCS: 36415; 71045; 80053; 85025; 99285

== ENCOUNTER 2023-08-12 01:27 | Emergency (ER) | payer MEDICARE, MEDICAID ==
[2023-08-12 02:14] LABS: #Basophils 0.1 thou/uL (0.0-0.2); #Monocytes 0.9 thou/uL (0.11-0.59); #Neutrophils 8.9 thou/uL (1.40-6.50); %Basophils 0.5 % (0.0-1.0); %Eosinophils 0.1 % (0.0-10.0); %Lymphocytes 4.4 % (21.0-51.0); %Monocytes 8.2 % (0.0-10.0); %Neutrophils 86.3 % (42.0-75.0); Hemoglobin 12.6 g/dL (14.0-18.0); Mean Corpuscular HGB CONC 33.2 g/dL (32.0-36.0); Mean Corpuscular Hemoglobin 29.3 pg (27.0-31.0); Mean Corpuscular Volume 88.4 fl (78.0-98.0); Mean Platelet Volume 9.6 fL (7.4-10.4); Platelet Count 224 10x3/uL (130-400); RBC Distribution Width 14.1 % (11.5-14.5); White Blood Cell (WBC) Count 10.3 10x3/uL (4.8-10.8)
[2023-08-12 02:39] LABS: ALT (SGPT) 10 U/L (8-55); AST (SGOT) 16 U/L (5-34); Albumin 3.5 g/dL (3.4-4.8); Alkaline Phosphatase 91 U/L (40-110); Anion Gap 14 mmol/L (10-20); BUN (Urea Nitrogen) 14 mg/dL (8.4-25.7); Bilirubin, Total 0.6 mg/dL (0.2-1.2); Calc. Creatinine Clearance 0 mL/min (70-130); Calcium 8.6 mg/dL (7.8-10.44); Carbon Dioxide 25 mmol/L (23-31); Chloride 105 mmol/L (98-107); Estimated GFR 91; Glucose 107 mg/dL (83-110); Magnesium 1.8 mg/dL (1.6-2.6); Potassium 3.7 mmol/L (3.5-5.1); Protein, Total 6.5 g/dL (5.8-8.1); Sodium 140 mmol/L (136-145)
[2023-08-12 02:48] LABS: Troponin I 0.018 ng/mL (< 0.028)
== END 2023-08-12 04:12 ==
LOC: ERS 01:27
DX: R41.82 Altered mental status, unspecified (principal); E11.649 Type 2 diabetes mellitus with hypoglycemia without coma; I10 Essential (primary) hypertension; E78.5 Hyperlipidemia, unspecified; Z79.84 Long term (current) use of oral hypoglycemic drugs; Z79.4 Long term (current) use of insulin; Z79.899 Other long term (current) drug therapy
CPT/HCPCS: 36415; 36416; 70450; 71045; 80053; 83735; 84484; 85025; 93005